=== PATIENT | female | born 1990 | race African-American/Black ===

== ENCOUNTER 2017-04-06 10:35 | Emergency (ER) | payer SELFPAY | END 2017-04-06 12:11 | LOC: ERS 10:35 | DX: Z53.21 Procedure and treatment not carried out due to patient leaving prior to being seen by health care provider (principal) ==

== ENCOUNTER 2018-05-29 17:56 | Emergency (ER) | payer SELFPAY ==
[2018-05-29] MEDS ORDERED: Ibuprofen 800 MG TAB ONE (18:29)
== END 2018-05-29 19:00 | disposition home or self-care (01) ==
LOC: ERS 17:56
DX: Z04.1 Encounter for examination and observation following transport accident (principal); V43.62XA Car passenger injured in collision with other type car in traffic accident, initial encounter
CPT/HCPCS: 99283

== ENCOUNTER 2019-12-24 19:43 | Emergency (ER) | payer SELFPAY | END 2019-12-24 23:10 | disposition left against medical advice (07) | LOC: ERS 19:43 | DX: Z53.21 Procedure and treatment not carried out due to patient leaving prior to being seen by health care provider (principal) ==

== ENCOUNTER 2019-12-25 15:42 | Emergency (ER) | payer SELFPAY ==
[2019-12-25] MEDS ORDERED: Boostrix 0.5 ML (Tdap) VIAL ONE (16:35)
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
== END 2019-12-25 18:27 | disposition home or self-care (01) ==
LOC: ERS 15:42
DX: S01.452A Open bite of left cheek and temporomandibular area, initial encounter (principal); S31.159A Open bite of abdominal wall, unspecified quadrant without penetration into peritoneal cavity, initial encounter; S00.83XA Contusion of other part of head, initial encounter; Z23 Encounter for immunization; F17.210 Nicotine dependence, cigarettes, uncomplicated; F41.9 Anxiety disorder, unspecified; Y04.1XXA Assault by human bite, initial encounter
CPT/HCPCS: 70486; 90471; 90715

== ENCOUNTER 2020-11-15 21:05 | Emergency (ER) | payer SELFPAY ==
[2020-11-15 21:51] LABS: #Basophils 0.1 thou/uL (0.0-0.2); #Lymphocytes 3.8 thou/uL (1.20-3.40); #Monocytes 1.1 thou/uL (0.11-0.59); #Neutrophils 3.8 thou/uL (1.40-6.50); %Basophils 1.5 % (0.0-1.0); %Eosinophils 0.1 % (0.0-10.0); %Lymphocytes 42.7 % (21.0-51.0); %Monocytes 12.6 % (0.0-10.0); Hemoglobin 14.6 g/dL (12.0-16.0); Mean Corpuscular HGB CONC 33.3 g/dL (32.0-36.0); Mean Corpuscular Hemoglobin 33.4 pg (27.0-31.0); Mean Platelet Volume 7.9 fL (7.4-10.4); Platelet Count 252 thou/uL (130-400); RBC Distribution Width 12.6 % (11.5-14.5); Red Blood Cell (RBC) Count 4.38 mill/uL (4.20-5.40); White Blood Cell (WBC) Count 8.9 thou/uL (4.8-10.8)
[2020-11-15 21:57] LABS: BHCG - Serum Negative (NEGATIVE); Pregs Control Background? CLEAR/WHITE (CLR/WHITE); Pregs Control Bar Appear? YES (CONTROL BAR)
[2020-11-15 22:12] LABS: ALT (SGPT) 15 U/L (8-55); AST (SGOT) 20 U/L (5-34); Albumin 4.8 g/dL (3.5-5.0); Alkaline Phosphatase 64 U/L (40-110); Anion Gap 15 mmol/L (10-20); BUN (Urea Nitrogen) 7 mg/dL (7.0-18.7); Bilirubin, Total 0.7 mg/dL (0.2-1.2); Calc. Creatinine Clearance 0 mL/min (70-130); Carbon Dioxide 25 mmol/L (22-29); Chloride 105 mmol/L (98-107); Globulin 3.6 g/dL (2.4-3.5); Glucose 108 mg/dL (70-105); Potassium 3.5 mmol/L (3.5-5.1); Protein, Total 8.4 g/dL (6.0-8.3); Sodium 141 mmol/L (136-145)
[2020-11-15 22:26] LABS: Bacteria/HPF None Seen HPF (None Seen); Bilirubin Negative (Negative); Blood, Urine 3+ (Negative); Clarity Cloudy (Clear); Glucose, Urine (Dipstick) Normal (Negative); Ketone, Urine 40 mg/dL (Negative); Leukocyte 250 Leu/uL (Negative); Nitrite Negative (Negative); Protein, Urine (Dipstick) 70 mg/dL (Neg-Trace); RBC/HPF Greater than 50 HPF (0-3); Specific Gravity, Urine 1.029 (1.002-1.036); Squamous Epithelial 0-3 HPF (0-3); WBC/HPF 21-50 HPF (0-3)
[2020-11-15] MEDS ORDERED: Tranexamic Acid 1,000 MG/10 ML VIAL ONE (23:14)
[2020-11-19 17:15] LABS: Chlamydia by PCR Not Detected (NotDetected); GC by PCR Not Detected (NotDetected)
== END 2020-11-15 23:20 | disposition home or self-care (01) ==
LOC: ERS 21:05
DX: N92.6 Irregular menstruation, unspecified (principal); F17.210 Nicotine dependence, cigarettes, uncomplicated
CPT/HCPCS: 36415; 80053; 81003; 81015; 84702; 84703; 85025; 86900; 86901; 87480; 87491; 87510; 87591; 87660; 99284

== ENCOUNTER 2021-06-14 13:19 | Inpatient (IN) | payer MEDICAID, SELFPAY ==
[~2021-06-14 13:19] MED LIST: Iopamidol-370 76% 500 ML 1 ML ONE
[2021-06-14] MEDS ORDERED: Ondansetron PF 4 MG/2 ML Vial ONE (14:08)
[2021-06-14] MEDS ORDERED: Fentanyl 100 MCG/2 ML VIAL ONE ×2 (14:08→16:04)
[2021-06-14 14:15] LABS: #Basophils 0.1 thou/uL (0.0-0.2); #Monocytes 0.7 thou/uL (0.11-0.59); #Neutrophils 12.5 thou/uL (1.40-6.50); %Basophils 0.4 % (0.0-1.0); %Eosinophils 0.2 % (0.0-10.0); %Lymphocytes 13.2 % (21.0-51.0); %Monocytes 4.8 % (0.0-10.0); %Neutrophils 81.5 % (42.0-75.0); Hemoglobin 14.9 g/dL (12.0-16.0); Mean Corpuscular HGB CONC 34.7 g/dL (32.0-36.0); Mean Corpuscular Hemoglobin 32.5 pg (27.0-31.0); Mean Corpuscular Volume 93.6 fL (78.0-98.0); Mean Platelet Volume 6.8 fL (7.4-10.4); Platelet Count 324 thou/uL (130-400); RBC Distribution Width 11.3 % (11.5-14.5); White Blood Cell (WBC) Count 15.3 thou/uL (4.8-10.8)
[2021-06-14 14:32] LABS: BHCG - Serum Negative (NEGATIVE); Pregs Control Background? CLEAR/WHITE (CLR/WHITE); Pregs Control Bar Appear? YES (CONTROL BAR)
[2021-06-14 14:38] LABS: ALT (SGPT) 26 U/L (8-55); AST (SGOT) 32 U/L (5-34); Albumin 4.5 g/dL (3.5-5.0); Alkaline Phosphatase 67 U/L (40-110); Anion Gap 19 mmol/L (10-20); BUN (Urea Nitrogen) 15 mg/dL (7.0-18.7); Bilirubin, Total 0.6 mg/dL (0.2-1.2); CK (CPK) 162 U/L (29-168); Calc. Creatinine Clearance 0 mL/min (70-130); Calcium 9.4 mg/dL (7.8-10.44); Carbon Dioxide 20 mmol/L (22-29); Chloride 102 mmol/L (98-107); Globulin 3.8 g/dL (2.4-3.5); Glucose 90 mg/dL (70-105); Magnesium 1.5 mg/dL (1.6-2.6); Potassium 3.6 mmol/L (3.5-5.1); Protein, Total 8.3 g/dL (6.0-8.3); Sodium 137 mmol/L (136-145)
[2021-06-14 14:52] LABS: Lipase 1825 U/L (8-78)
[2021-06-14] MEDS ORDERED: Magnesium 2 GM/50 ML BAG (IN WATER) ONE (16:04)
[2021-06-14] MEDS ORDERED: Ondansetron ODT 4 MG TAB PO PRN (16:37)
[2021-06-14] MEDS ORDERED: Acetaminophen 325 MG TAB PO PRN (16:37)
[2021-06-14 17:53] LABS: Alcohol Less than 10 mg/dL (Less than 10); Cardiac Risk 3.6 (Less than 4.5); Cholesterol 184 mg/dl (< 200 Desired); HDL Cholesterol 51 mg/dL (>60 Neg Risk); Triglycerides 810 mg/dL (Less than 150)
[2021-06-14] MEDS: Morphine 2 MG/ML VIAL SLOW IVP PRN (17:58)
[2021-06-14] MEDS: Sodium Chloride 0.9% 1,000 ML IV SCH ×2 (18:01→23:08)
[2021-06-14 18:05] VITALS: BMI 24.5
[2021-06-14 20:05] LABS: Troponin I Less than 0.010 ng/mL (< 0.028)
[2021-06-14] MEDS: HYDROcodone/Acetaminophen 5/325 mg Tablet PO PRN (20:57)
[2021-06-14] MEDS ORDERED: Morphine 2 MG/ML VIAL SLOW IVP SCH (21:00)
[2021-06-14 22:01] LABS: Bacteria/HPF None Seen HPF (None Seen); Bilirubin Negative (Negative); Blood, Urine 2+ (Negative); Clarity Clear (Clear); Glucose, Urine (Dipstick) Normal (Negative); Ketone, Urine 20 mg/dL (Negative); Leukocyte Negative Leu/uL (Negative); Nitrite Negative (Negative); Protein, Urine (Dipstick) 10 mg/dL (Neg-Trace); RBC/HPF 0-3 HPF (0-3); Specific Gravity, Urine 1.036 (1.002-1.036); Squamous Epithelial 0-3 HPF (0-3); Urobilinogen Normal mg/dL (Less than 2); WBC/HPF 0-3 HPF (0-3)
[2021-06-14 22:02] LABS: Urine Culture Reflex No No
[2021-06-14 23:19] LABS: Troponin I Less than 0.010 ng/mL (< 0.028)
[2021-06-15 00:26] LABS: SARS-CoV-2 PCR by NAA Not Detected (NotDetected)
[2021-06-15] MEDS: HYDROcodone/Acetaminophen 5/325 mg Tablet PO PRN ×5 (01:24→18:10)
[2021-06-15] MEDS: Sodium Chloride 0.9% 1,000 ML IV SCH ×6 (01:25→20:33)
[2021-06-15] MEDS: Morphine 2 MG/ML VIAL SLOW IVP PRN ×4 (04:12→20:33)
[2021-06-15 08:36] LABS: #Eosinphils 0.1 thou/uL (0.0-0.7); #Lymphocytes 1.7 thou/uL (1.20-3.40); #Monocytes 0.6 thou/uL (0.11-0.59); #Neutrophils 11.1 thou/uL (1.40-6.50); %Basophils 0.1 % (0.0-1.0); %Eosinophils 1.1 % (0.0-10.0); %Lymphocytes 12.8 % (21.0-51.0); %Monocytes 4.2 % (0.0-10.0); %Neutrophils 81.8 % (42.0-75.0); Hemoglobin 11.8 g/dL (12.0-16.0); Mean Corpuscular HGB CONC 33.9 g/dL (32.0-36.0); Mean Corpuscular Hemoglobin 32.9 pg (27.0-31.0); Mean Corpuscular Volume 97.1 fL (78.0-98.0); Mean Platelet Volume 7.3 fL (7.4-10.4); Platelet Count 216 thou/uL (130-400); RBC Distribution Width 11.4 % (11.5-14.5); Red Blood Cell (RBC) Count 3.58 mill/uL (4.20-5.40); White Blood Cell (WBC) Count 13.6 thou/uL (4.8-10.8)
[2021-06-15 09:15] LABS: Lipase 1430 U/L (8-78)
[2021-06-15 09:18] LABS: ALT (SGPT) 14 U/L (8-55); AST (SGOT) 25 U/L (5-34); Albumin 3.3 g/dL (3.5-5.0); Alkaline Phosphatase 54 U/L (40-110); Anion Gap 10 mmol/L (10-20); BUN (Urea Nitrogen) 8 mg/dL (7.0-18.7); Calc. Creatinine Clearance 100 mL/min (70-130); Carbon Dioxide 20 mmol/L (22-29); Chloride 108 mmol/L (98-107); Globulin 2.6 g/dL (2.4-3.5); Glucose 86 mg/dL (70-105); Magnesium 1.7 mg/dL (1.6-2.6); Potassium 3.5 mmol/L (3.5-5.1); Protein, Total 5.9 g/dL (6.0-8.3); Sodium 134 mmol/L (136-145)
[2021-06-15] MEDS ORDERED: Lorazepam 2 MG/ML VIAL SLOW IVP PRN (16:20)
[2021-06-16] MEDS: HYDROcodone/Acetaminophen 5/325 mg Tablet PO PRN ×5 (00:30→20:01)
[2021-06-16] MEDS: Sodium Chloride 0.9% 1,000 ML IV SCH ×3 (00:36→13:42)
[2021-06-16] MEDS: Morphine 2 MG/ML VIAL SLOW IVP PRN ×3 (05:37→22:56)
[2021-06-16 12:30] LABS: #Eosinphils 0.2 thou/uL (0.0-0.7); #Monocytes 0.6 thou/uL (0.11-0.59); #Neutrophils 8.4 thou/uL (1.40-6.50); %Basophils 0.1 % (0.0-1.0); %Eosinophils 1.6 % (0.0-10.0); %Monocytes 5.4 % (0.0-10.0); Hemoglobin 10.1 g/dL (12.0-16.0); Mean Corpuscular HGB CONC 33.7 g/dL (32.0-36.0); Mean Corpuscular Hemoglobin 32.7 pg (27.0-31.0); Mean Corpuscular Volume 96.8 fL (78.0-98.0); Mean Platelet Volume 7.3 fL (7.4-10.4); Platelet Count 186 thou/uL (130-400); RBC Distribution Width 11.3 % (11.5-14.5); Red Blood Cell (RBC) Count 3.09 mill/uL (4.20-5.40); White Blood Cell (WBC) Count 11.2 thou/uL (4.8-10.8)
[2021-06-16 13:04] LABS: ALT (SGPT) 11 U/L (8-55); AST (SGOT) 25 U/L (5-34); Alkaline Phosphatase 49 U/L (40-110); Anion Gap 12 mmol/L (10-20); BUN (Urea Nitrogen) Less than 4 mg/dL (7.0-18.7); Bilirubin, Total 0.5 mg/dL (0.2-1.2); Calc. Creatinine Clearance 99 mL/min (70-130); Calcium 8.1 mg/dL (7.8-10.44); Carbon Dioxide 19 mmol/L (22-29); Chloride 109 mmol/L (98-107); Globulin 2.5 g/dL (2.4-3.5); Glucose 115 mg/dL (70-105); Magnesium 1.5 mg/dL (1.6-2.6); Potassium 3.9 mmol/L (3.5-5.1); Protein, Total 5.5 g/dL (6.0-8.3); Sodium 136 mmol/L (136-145)
[2021-06-16] MEDS ORDERED: Silver Sulfadiazine 50 GM TUBE TOP SCH ×2 (15:00→21:00)
[2021-06-16] MEDS ORDERED: Electrolyte Replacement Protocol FS PRN (15:00)
[2021-06-16] MEDS ORDERED: Electrolyte Replacement Protocol 1 EACH FS SCH (15:00)
[2021-06-16] MEDS: Lactated Ringer's 1,000 ML IV SCH (15:31)
[2021-06-16] MEDS ORDERED: Magnesium 2 GM/50 ML(in water) 2 GM in Premix Bag 1 BAG IVPB SCH (16:15)
[2021-06-16] MEDS ORDERED: Simethicone Chewable 80 MG TAB PO PRN (18:00)
[2021-06-16] MEDS: Silver Sulfadiazine 50 GM TUBE TOP SCH (20:14)
[2021-06-17] MEDS: Lactated Ringer's 1,000 ML IV SCH ×2 (01:35→02:50)
[2021-06-17] MEDS: HYDROcodone/Acetaminophen 5/325 mg Tablet PO PRN ×3 (02:49→14:30)
[2021-06-17 06:31] LABS: #Eosinphils 0.2 thou/uL (0.0-0.7); #Lymphocytes 2.4 thou/uL (1.20-3.40); #Monocytes 0.4 thou/uL (0.11-0.59); #Neutrophils 5.5 thou/uL (1.40-6.50); %Basophils 0.1 % (0.0-1.0); %Eosinophils 2.3 % (0.0-10.0); %Lymphocytes 28.3 % (21.0-51.0); %Monocytes 4.2 % (0.0-10.0); %Neutrophils 65.1 % (42.0-75.0); Hemoglobin 9.9 g/dL (12.0-16.0); Mean Corpuscular HGB CONC 35.1 g/dL (32.0-36.0); Mean Corpuscular Hemoglobin 34.1 pg (27.0-31.0); Mean Corpuscular Volume 97.2 fL (78.0-98.0); Mean Platelet Volume 7.9 fL (7.4-10.4); Platelet Count 198 thou/uL (130-400); RBC Distribution Width 11.5 % (11.5-14.5); Red Blood Cell (RBC) Count 2.91 mill/uL (4.20-5.40); White Blood Cell (WBC) Count 8.5 thou/uL (4.8-10.8)
[2021-06-17 06:53] LABS: ALT (SGPT) 10 U/L (8-55); AST (SGOT) 27 U/L (5-34); Albumin 3.1 g/dL (3.5-5.0); Alkaline Phosphatase 48 U/L (40-110); Anion Gap 10 mmol/L (10-20); BUN (Urea Nitrogen) Less than 4 mg/dL (7.0-18.7); Bilirubin, Total 0.5 mg/dL (0.2-1.2); Calc. Creatinine Clearance 103 mL/min (70-130); Calcium 8.3 mg/dL (7.8-10.44); Carbon Dioxide 21 mmol/L (22-29); Chloride 107 mmol/L (98-107); Globulin 2.6 g/dL (2.4-3.5); Glucose 83 mg/dL (70-105); Potassium 3.4 mmol/L (3.5-5.1); Protein, Total 5.7 g/dL (6.0-8.3); Sodium 135 mmol/L (136-145)
[2021-06-17] MEDS ORDERED: Potassium Chloride 20 MEQ TAB PO SCH (07:15)
[2021-06-17 08:37] VITALS: TEMP 98.9
[2021-06-17 12:42] VITALS: BP 138/78
[2021-06-17] MEDS: Silver Sulfadiazine 50 GM TUBE TOP SCH (14:39)
== END 2021-06-17 14:41 | disposition home or self-care (01) | DRG 440 ==
LOC: ERS 13:19 → T4-B 15:39
PROVIDERS: ADMIT Internal Medicine; ATTEND Internal Medicine
DX: K85.90 Acute pancreatitis without necrosis or infection, unspecified (principal); Z20.822 Contact with and (suspected) exposure to COVID-19; E83.42 Hypomagnesemia; E87.6 Hypokalemia; F10.10 Alcohol abuse, uncomplicated; T21.02XA Burn of unspecified degree of abdominal wall, initial encounter; X58.XXXA Exposure to other specified factors, initial encounter
CPT/HCPCS: 36415; 71045; 74177; 76705; 80053; 80061; 80307; 81001; 82550; 83690; 83735; 84478; 84484; 84703; 85025; 87040; 96365; 96375; 96376; J2270; J2405; J3010; J3411; J3475; J7050; J7120; Q9967; U0003; U0005

== ENCOUNTER 2021-09-08 20:50 | Inpatient (IN) | payer MEDICAID, SELFPAY ==
[~2021-09-08 20:50] MED LIST changes: +ISOVUE-370 76%-LOCM 1 ML ONE; -Iopamidol-370 76% 500 ML 1 ML ONE
[2021-09-08] MEDS ORDERED: Morphine 4 MG/ML VIAL ONE (21:46)
[2021-09-08] MEDS ORDERED: Ondansetron PF 4 MG/2 ML Vial ONE (21:46)
[2021-09-08 21:50] LABS: #Basophils 0.1 thou/uL (0.0-0.2); #Lymphocytes 2.3 thou/uL (1.20-3.40); #Monocytes 0.7 thou/uL (0.11-0.59); #Neutrophils 9.5 thou/uL (1.40-6.50); %Basophils 0.5 % (0.0-1.0); %Eosinophils 0.3 % (0.0-10.0); %Monocytes 5.7 % (0.0-10.0); %Neutrophils 75.5 % (42.0-75.0); Mean Corpuscular HGB CONC 34.4 g/dL (32.0-36.0); Mean Corpuscular Hemoglobin 33.5 pg (27.0-31.0); Mean Corpuscular Volume 97.5 fL (78.0-98.0); Mean Platelet Volume 7.3 fL (7.4-10.4); Platelet Count 274 thou/uL (130-400); Red Blood Cell (RBC) Count 4.19 mill/uL (4.20-5.40); White Blood Cell (WBC) Count 12.5 thou/uL (4.8-10.8)
[2021-09-08 21:55] LABS: BHCG - Serum Negative (NEGATIVE); Pregs Control Background? CLEAR/WHITE (CLR/WHITE); Pregs Control Bar Appear? YES (CONTROL BAR)
[2021-09-08 22:11] LABS: ALT (SGPT) 19 U/L (8-55); AST (SGOT) 25 U/L (5-34); Albumin 4.1 g/dL (3.5-5.0); Alkaline Phosphatase 81 U/L (40-110); Anion Gap 15 mmol/L (10-20); BUN (Urea Nitrogen) 10 mg/dL (7.0-18.7); Bilirubin, Total 0.5 mg/dL (0.2-1.2); Calc. Creatinine Clearance 0 mL/min (70-130); Calcium 9.5 mg/dL (7.8-10.44); Carbon Dioxide 24 mmol/L (22-29); Chloride 99 mmol/L (98-107); Estimated GFR 92; Globulin 4.1 g/dL (2.4-3.5); Glucose 105 mg/dL (70-105); Lipase 574 U/L (8-78); Potassium 3.7 mmol/L (3.5-5.1); Protein, Total 8.2 g/dL (6.0-8.3); Sodium 134 mmol/L (136-145)
[2021-09-08] MEDS ORDERED: Thiamine HCl 200 MG/2 ML VIAL SLOW IVP SCH (22:30)
[2021-09-08 22:39] LABS: Magnesium 1.4 mg/dL (1.6-2.6)
[2021-09-08] MEDS ORDERED: Fentanyl 100 MCG/2 ML VIAL ONE (22:44)
[2021-09-08] MEDS ORDERED: Multivitamins, Adult 10 ML, Thiamine HCl 100 MG, Folic Acid 1 MG in Dextrose 5 %-0.45 %... IV SCH (23:15)
[2021-09-08] MEDS ORDERED: Sodium Chloride 0.9% 1,000 ML IV SCH (23:45)
[2021-09-08] MEDS ORDERED: Fentanyl 100 MCG/2 ML VIAL SLOW IVP PRN (23:46)
[2021-09-09] MEDS ORDERED: Ondansetron PF 4 MG/2 ML Vial IVP PRN (00:49)
[2021-09-09] MEDS ORDERED: Acetaminophen 650 MG Suppository PR PRN (00:49)
[2021-09-09] MEDS ORDERED: Ondansetron ODT 4 MG TAB PO PRN (00:49)
[2021-09-09] MEDS ORDERED: Promethazine HCl 25 MG/ML VIAL IM PRN (00:49)
[2021-09-09] MEDS ORDERED: Acetaminophen 325 MG TAB PO PRN (00:49)
[2021-09-09] MEDS ORDERED: Lorazepam 2 MG/ML VIAL IM PRN (00:56)
[2021-09-09] MEDS ORDERED: Lorazepam 1 MG TAB PO PRN (00:56)
[2021-09-09] MEDS ORDERED: Magnesium Sulfate 4 GM in Sodium Chloride 0.9% 250 ML 250 ML IVPB SCH (01:00)
[2021-09-09] MEDS ORDERED: Electrolyte Replacement Protocol 1 EACH FS SCH (01:00)
[2021-09-09] MEDS: Sodium Chloride 0.9% 1,000 ML IV SCH ×4 (01:46→15:54)
[2021-09-09] MEDS: Lorazepam 1 MG TAB PO SCH ×4 (01:48→18:57)
[2021-09-09 02:20] VITALS: BMI 25.7
[2021-09-09 05:06] LABS: #Monocytes 0.9 thou/uL (0.11-0.59); #Neutrophils 8.1 thou/uL (1.40-6.50); %Basophils 0.2 % (0.0-1.0); %Eosinophils 0.4 % (0.0-10.0); %Lymphocytes 18.2 % (21.0-51.0); %Monocytes 8.4 % (0.0-10.0); %Neutrophils 72.8 % (42.0-75.0); Hemoglobin 12.3 g/dL (12.0-16.0); Mean Corpuscular HGB CONC 33.6 g/dL (32.0-36.0); Mean Corpuscular Hemoglobin 33.6 pg (27.0-31.0); Mean Platelet Volume 7.5 fL (7.4-10.4); Platelet Count 236 thou/uL (130-400); RBC Distribution Width 12.1 % (11.5-14.5); Red Blood Cell (RBC) Count 3.65 mill/uL (4.20-5.40); White Blood Cell (WBC) Count 11.1 thou/uL (4.8-10.8)
[2021-09-09 05:26] LABS: Anion Gap 12 mmol/L (10-20); BUN (Urea Nitrogen) 6 mg/dL (7.0-18.7); Calc. Creatinine Clearance 105 mL/min (70-130); Calcium 8.5 mg/dL (7.8-10.44); Carbon Dioxide 20 mmol/L (22-29); Chloride 104 mmol/L (98-107); Estimated GFR 108; Glucose 103 mg/dL (70-105); Potassium 3.5 mmol/L (3.5-5.1); Sodium 132 mmol/L (136-145)
[2021-09-09] MEDS ORDERED: Potassium Chloride 20 MEQ TAB PO SCH (08:00)
[2021-09-09] MEDS: Multivit, Therapeutic 1 TAB PO SCH (08:48)
[2021-09-09] MEDS: Folic Acid 1 MG TAB PO SCH (08:48)
[2021-09-09] MEDS: Enoxaparin Sodium 40 MG/0.4 ML SYRINGE SC SCH (08:48)
[2021-09-09] MEDS ORDERED: Morphine 4 MG/ML VIAL SLOW IVP SCH (12:30)
[2021-09-09 13:21] LABS: Potassium 3.7 mmol/L (3.5-5.1)
[2021-09-09] MEDS: Multivitamins, Adult 10 ML, Folic Acid 1 MG, Thiamine HCl 100 MG in Dextrose 5 %-0.45 %... IV SCH (13:47)
[2021-09-09] MEDS: Senokot S 8.6-50 MG TAB PO SCH ×2 (20:43→21:32)
[2021-09-09] MEDS: Morphine 4 MG/ML VIAL SLOW IVP PRN (21:33)
[2021-09-10] MEDS ORDERED: Lorazepam 1 MG TAB PO PRN (00:56)
[2021-09-10] MEDS: Morphine 4 MG/ML VIAL SLOW IVP PRN ×2 (01:49→08:32)
[2021-09-10] MEDS: Lorazepam 1 MG TAB PO SCH ×2 (01:49→06:40)
[2021-09-10 05:18] LABS: #Eosinphils 0.1 thou/uL (0.0-0.7); #Lymphocytes 1.8 thou/uL (1.20-3.40); #Monocytes 0.5 thou/uL (0.11-0.59); #Neutrophils 3.8 thou/uL (1.40-6.50); %Basophils 0.2 % (0.0-1.0); %Eosinophils 2.2 % (0.0-10.0); %Lymphocytes 28.7 % (21.0-51.0); %Monocytes 7.3 % (0.0-10.0); %Neutrophils 61.6 % (42.0-75.0); Hemoglobin 10.5 g/dL (12.0-16.0); Mean Corpuscular HGB CONC 34.1 g/dL (32.0-36.0); Mean Corpuscular Hemoglobin 34.2 pg (27.0-31.0); Mean Platelet Volume 7.6 fL (7.4-10.4); Platelet Count 190 thou/uL (130-400); RBC Distribution Width 11.9 % (11.5-14.5); Red Blood Cell (RBC) Count 3.08 mill/uL (4.20-5.40); White Blood Cell (WBC) Count 6.1 thou/uL (4.8-10.8)
[2021-09-10 05:37] LABS: ALT (SGPT) 9 U/L (8-55); AST (SGOT) 15 U/L (5-34); Albumin 3.3 g/dL (3.5-5.0); Alkaline Phosphatase 58 U/L (40-110); Anion Gap 13 mmol/L (10-20); BUN (Urea Nitrogen) 5 mg/dL (7.0-18.7); Bilirubin, Total 0.4 mg/dL (0.2-1.2); Calc. Creatinine Clearance 104 mL/min (70-130); Calcium 8.4 mg/dL (7.8-10.44); Carbon Dioxide 20 mmol/L (22-29); Chloride 104 mmol/L (98-107); Estimated GFR 107; Globulin 2.8 g/dL (2.4-3.5); Glucose 115 mg/dL (70-105); Lipase 385 U/L (8-78); Magnesium 1.7 mg/dL (1.6-2.6); Phosphorus 3.1 mg/dL (2.3-4.7); Potassium 3.8 mmol/L (3.5-5.1); Protein, Total 6.1 g/dL (6.0-8.3); Sodium 133 mmol/L (136-145)
[2021-09-10] MEDS ORDERED: Magnesium 2 GM/50 ML(in water) 2 GM in Premix Bag 1 BAG IVPB SCH (08:00)
[2021-09-10] MEDS: Multivit, Therapeutic 1 TAB PO SCH (08:25)
[2021-09-10] MEDS: Senokot S 8.6-50 MG TAB PO SCH (08:25)
[2021-09-10] MEDS: Folic Acid 1 MG TAB PO SCH (08:25)
[2021-09-10] MEDS: Enoxaparin Sodium 40 MG/0.4 ML SYRINGE SC SCH (08:26)
[2021-09-10] MEDS ORDERED: Pantoprazole 40 MG VIAL IVP SCH (09:00)
[2021-09-10 09:04] VITALS: BP 128/85; TEMP 98.3
[2021-09-10] MEDS: Multivitamins, Adult 10 ML, Folic Acid 1 MG, Thiamine HCl 100 MG in Dextrose 5 %-0.45 %... IV SCH (10:28)
[2021-09-11] MEDS ORDERED: Lorazepam 1 MG TAB PO PRN (00:56)
[2021-09-11] MEDS ORDERED: Lorazepam 0.5 MG TAB PO SCH (01:00)
[2021-09-12] MEDS ORDERED: Lorazepam 0.5 MG TAB PO PRN (00:56)
[2021-09-12] MEDS ORDERED: Thiamine 100 MG TAB PO SCH (09:00)
== END 2021-09-10 11:37 | disposition left against medical advice (07) | DRG 439 ==
LOC: ERS 20:50 → 2SW 23:41 → OBSVTOIN 09-09 22:49
PROVIDERS: ADMIT Internal Medicine; ATTEND Internal Medicine
DX: K85.20 Alcohol induced acute pancreatitis without necrosis or infection (principal); E87.1 Hypo-osmolality and hyponatremia; Z20.822 Contact with and (suspected) exposure to COVID-19; F17.210 Nicotine dependence, cigarettes, uncomplicated; F10.20 Alcohol dependence, uncomplicated; E83.42 Hypomagnesemia; Z79.899 Other long term (current) drug therapy; Z88.5 Allergy status to narcotic agent; Z53.29 Procedure and treatment not carried out because of patient's decision for other reasons
CPT/HCPCS: 36415; 74177; 80048; 80053; 83690; 83735; 84100; 84703; 85025; 93005; 96372; 96375; 96376; C9113; G0378; J1650; J2270; J2405; J2550; J3010; J3411; J3475; J7042; J7050; Q9966; U0003; U0005

== ENCOUNTER 2021-09-25 13:58 | Inpatient (IN) | payer SELFPAY ==
[2021-09-25] MEDS ORDERED: Iopamidol-370 76% 500 ML 1 ML ONE (14:07)
[2021-09-25 14:26] LABS: Hemoglobin 13.9 g/dL (12.0-16.0); Mean Corpuscular HGB CONC 36.4 g/dL (32.0-36.0); Mean Corpuscular Volume 93.5 fL (78.0-98.0); Mean Platelet Volume 7.3 fL (7.4-10.4); Platelet Count 311 thou/uL (130-400); RBC Distribution Width 11.6 % (11.5-14.5); Red Blood Cell (RBC) Count 4.08 mill/uL (4.20-5.40); White Blood Cell (WBC) Count 5.3 thou/uL (4.8-10.8)
[2021-09-25 14:44] LABS: ALT (SGPT) 43 U/L (8-55); AST (SGOT) 54 U/L (5-34); Albumin 4.2 g/dL (3.5-5.0); Alkaline Phosphatase 74 U/L (40-110); Anion Gap 19 mmol/L (10-20); BUN (Urea Nitrogen) 11 mg/dL (7.0-18.7); Bilirubin, Total 0.3 mg/dL (0.2-1.2); Calc. Creatinine Clearance 0 mL/min (70-130); Calcium 9.3 mg/dL (7.8-10.44); Carbon Dioxide 19 mmol/L (22-29); Chloride 103 mmol/L (98-107); Estimated GFR 78; Globulin 4.1 g/dL (2.4-3.5); Glucose 113 mg/dL (70-105); Lipase 176 U/L (8-78); Potassium 3.7 mmol/L (3.5-5.1); Protein, Total 8.3 g/dL (6.0-8.3); Sodium 137 mmol/L (136-145)
[2021-09-25 14:49] LABS: Eosinophils 2 % (0-10); Lymphocytes 74 % (21-51); MDiff Complete? YES; Monocytes 7 % (0-10); Neutrophil 17 % (42-75); Platelet Morphology Comment Appears Adequate; RBC Morphology Normal
[2021-09-25 14:55] LABS: BHCG - Serum Negative (NEGATIVE); Pregs Control Background? CLEAR/WHITE (CLR/WHITE); Pregs Control Bar Appear? YES (CONTROL BAR)
[2021-09-25] MEDS ORDERED: Morphine 4 MG/ML VIAL ONE ×2 (14:56→16:09)
[2021-09-25] MEDS ORDERED: Ondansetron PF 4 MG/2 ML Vial ONE (14:56)
[2021-09-25 17:15] LABS: Lactic Acid 1.5 mmol/L (0.5-2.2)
[2021-09-25] MEDS ORDERED: Fentanyl 100 MCG/2 ML VIAL ONE (17:18)
[2021-09-25] MEDS ORDERED: Acetaminophen 325 MG TAB PO PRN (18:08)
[2021-09-25] MEDS ORDERED: Diazepam 5 MG TAB ONE (18:08)
[2021-09-25] MEDS ORDERED: Ondansetron PF 4 MG/2 ML Vial IVP PRN (18:08)
[2021-09-25 19:14] LABS: Cardiac Risk 4.3 (Less than 4.5); Cholesterol 207 mg/dl (< 200 Desired); HDL Cholesterol 48 mg/dL (>60 Neg Risk)
[2021-09-25 19:38] VITALS: BMI 24.0
[2021-09-25] MEDS: Lactated Ringer's 1,000 ML IV SCH (19:52)
[2021-09-25] MEDS: Famotidine/PF 20 mg/2ml Vial SLOW IVP SCH (19:54)
[2021-09-25] MEDS: Morphine 4 MG/ML VIAL SLOW IVP PRN (20:03)
[2021-09-25 20:04] LABS: Triglycerides 1070 mg/dL (Less than 150)
[2021-09-26] MEDS: Morphine 4 MG/ML VIAL SLOW IVP PRN ×4 (00:11→20:17)
[2021-09-26] MEDS: Lactated Ringer's 1,000 ML IV SCH ×4 (02:19→12:09)
[2021-09-26 06:27] LABS: #Eosinphils 0.1 thou/uL (0.0-0.7); #Lymphocytes 1.6 thou/uL (1.20-3.40); #Monocytes 0.9 thou/uL (0.11-0.59); #Neutrophils 6.6 thou/uL (1.40-6.50); %Basophils 0.3 % (0.0-1.0); %Eosinophils 0.7 % (0.0-10.0); %Lymphocytes 17.9 % (21.0-51.0); %Monocytes 9.6 % (0.0-10.0); %Neutrophils 71.6 % (42.0-75.0); Hemoglobin 11.2 g/dL (12.0-16.0); Mean Corpuscular HGB CONC 34.3 g/dL (32.0-36.0); Mean Corpuscular Hemoglobin 32.9 pg (27.0-31.0); Mean Corpuscular Volume 95.9 fL (78.0-98.0); Mean Platelet Volume 7.3 fL (7.4-10.4); Platelet Count 248 thou/uL (130-400); RBC Distribution Width 11.6 % (11.5-14.5); Red Blood Cell (RBC) Count 3.39 mill/uL (4.20-5.40); White Blood Cell (WBC) Count 9.2 thou/uL (4.8-10.8)
[2021-09-26 06:40] LABS: ALT (SGPT) 28 U/L (8-55); AST (SGOT) 29 U/L (5-34); Albumin 3.4 g/dL (3.5-5.0); Alkaline Phosphatase 65 U/L (40-110); Anion Gap 11 mmol/L (10-20); BUN (Urea Nitrogen) 7 mg/dL (7.0-18.7); Bilirubin, Total 0.7 mg/dL (0.2-1.2); Calc. Creatinine Clearance 95 mL/min (70-130); Calcium 8.6 mg/dL (7.8-10.44); Carbon Dioxide 24 mmol/L (22-29); Chloride 104 mmol/L (98-107); Estimated GFR 100; Globulin 2.8 g/dL (2.4-3.5); Glucose 112 mg/dL (70-105); Magnesium 1.4 mg/dL (1.6-2.6); Potassium 3.8 mmol/L (3.5-5.1); Protein, Total 6.2 g/dL (6.0-8.3); Sodium 135 mmol/L (136-145)
[2021-09-26] MEDS: Famotidine/PF 20 mg/2ml Vial SLOW IVP SCH ×2 (08:17→20:19)
[2021-09-26 09:09] LABS: Cardiac Risk 2.6 (Less than 4.5)
[2021-09-26] MEDS ORDERED: Magnesium Sulfate 3 GM in Sodium Chloride 0.9% 100 ML IVPB SCH (10:00)
[2021-09-26] MEDS ORDERED: Ondansetron PF 4 MG/2 ML Vial IVP PRN (11:10)
[2021-09-26] MEDS: HYDROcodone/Acetaminophen 5/325 mg Tablet PO PRN ×3 (12:07→23:59)
[2021-09-26] MEDS: diphenhydrAMINE 25 MG CAP PO PRN ×2 (12:07→21:30)
[2021-09-27] MEDS: Morphine 4 MG/ML VIAL SLOW IVP PRN ×4 (03:41→23:12)
[2021-09-27 06:16] LABS: #Eosinphils 0.1 thou/uL (0.0-0.7); #Lymphocytes 2.4 thou/uL (1.20-3.40); #Monocytes 0.5 thou/uL (0.11-0.59); #Neutrophils 3.2 thou/uL (1.40-6.50); %Basophils 0.5 % (0.0-1.0); %Eosinophils 1.8 % (0.0-10.0); %Lymphocytes 37.8 % (21.0-51.0); %Monocytes 8.1 % (0.0-10.0); %Neutrophils 51.8 % (42.0-75.0); Hemoglobin 9.7 g/dL (12.0-16.0); Mean Corpuscular Volume 97.1 fL (78.0-98.0); Mean Platelet Volume 7.3 fL (7.4-10.4); Platelet Count 205 thou/uL (130-400); RBC Distribution Width 11.6 % (11.5-14.5); Red Blood Cell (RBC) Count 2.85 mill/uL (4.20-5.40); White Blood Cell (WBC) Count 6.3 thou/uL (4.8-10.8)
[2021-09-27] MEDS: HYDROcodone/Acetaminophen 5/325 mg Tablet PO PRN ×4 (06:21→20:13)
[2021-09-27] MEDS: diphenhydrAMINE 25 MG CAP PO PRN ×2 (06:21→23:11)
[2021-09-27 06:31] LABS: CRP (Inflammatory) 3.19 mg/dL (= or < 0.5)
[2021-09-27 06:37] LABS: ALT (SGPT) 17 U/L (8-55); AST (SGOT) 21 U/L (5-34); Albumin 2.9 g/dL (3.5-5.0); Alkaline Phosphatase 55 U/L (40-110); Anion Gap 11 mmol/L (10-20); BUN (Urea Nitrogen) 4 mg/dL (7.0-18.7); Bilirubin, Total 0.4 mg/dL (0.2-1.2); Calc. Creatinine Clearance 93 mL/min (70-130); Carbon Dioxide 23 mmol/L (22-29); Chloride 106 mmol/L (98-107); Estimated GFR 97; Globulin 2.4 g/dL (2.4-3.5); Glucose 89 mg/dL (70-105); Lipase 449 U/L (8-78); Potassium 3.4 mmol/L (3.5-5.1); Protein, Total 5.3 g/dL (6.0-8.3); Sodium 137 mmol/L (136-145)
[2021-09-27] MEDS: Polyethylene Glycol 3350 17 GM Packet PO SCH (10:12)
[2021-09-27] MEDS: Famotidine/PF 20 mg/2ml Vial SLOW IVP SCH ×2 (10:13→20:12)
[2021-09-27] MEDS: Potassium Chloride 20 MEQ TAB PO SCH ×2 (10:15→17:25)
[2021-09-27] MEDS: Lactated Ringer's 1,000 ML IV SCH ×2 (10:15→16:44)
[2021-09-28] MEDS: HYDROcodone/Acetaminophen 5/325 mg Tablet PO PRN ×4 (00:14→22:52)
[2021-09-28] MEDS: Morphine 4 MG/ML VIAL SLOW IVP PRN ×3 (04:21→20:30)
[2021-09-28] MEDS: Lactated Ringer's 1,000 ML IV SCH ×5 (04:36→23:18)
[2021-09-28 07:39] LABS: Anion Gap 13 mmol/L (10-20); BUN (Urea Nitrogen) 6 mg/dL (7.0-18.7); Calc. Creatinine Clearance 95 mL/min (70-130); Calcium 8.6 mg/dL (7.8-10.44); Carbon Dioxide 23 mmol/L (22-29); Chloride 104 mmol/L (98-107); Estimated GFR 100; Glucose 89 mg/dL (70-105); Magnesium 1.6 mg/dL (1.6-2.6); Sodium 136 mmol/L (136-145)
[2021-09-28 07:48] LABS: #Basophils 0.1 thou/uL (0.0-0.2); #Eosinphils 0.1 thou/uL (0.0-0.7); #Lymphocytes 2.4 thou/uL (1.20-3.40); #Monocytes 0.4 thou/uL (0.11-0.59); %Basophils 0.8 % (0.0-1.0); %Eosinophils 1.7 % (0.0-10.0); %Lymphocytes 34.6 % (21.0-51.0); %Monocytes 5.6 % (0.0-10.0); %Neutrophils 57.4 % (42.0-75.0); Hemoglobin 9.7 g/dL (12.0-16.0); Mean Corpuscular HGB CONC 33.6 g/dL (32.0-36.0); Mean Corpuscular Hemoglobin 33.1 pg (27.0-31.0); Mean Corpuscular Volume 98.6 fL (78.0-98.0); Mean Platelet Volume 7.9 fL (7.4-10.4); Platelet Count 223 thou/uL (130-400); RBC Distribution Width 11.8 % (11.5-14.5); Red Blood Cell (RBC) Count 2.94 mill/uL (4.20-5.40)
[2021-09-28] MEDS: Polyethylene Glycol 3350 17 GM Packet PO SCH (08:44)
[2021-09-28] MEDS: Famotidine/PF 20 mg/2ml Vial SLOW IVP SCH ×2 (08:45→20:22)
[2021-09-28] MEDS: diphenhydrAMINE 25 MG CAP PO PRN ×3 (08:57→22:53)
[2021-09-29] MEDS: Morphine 4 MG/ML VIAL SLOW IVP PRN (01:47)
[2021-09-29] MEDS: HYDROcodone/Acetaminophen 5/325 mg Tablet PO PRN ×2 (03:28→08:21)
[2021-09-29] MEDS: Lactated Ringer's 1,000 ML IV SCH ×2 (04:51→10:39)
[2021-09-29 08:20] LABS: #Eosinphils 0.1 thou/uL (0.0-0.7); #Lymphocytes 2.8 thou/uL (1.20-3.40); #Monocytes 0.6 thou/uL (0.11-0.59); #Neutrophils 5.4 thou/uL (1.40-6.50); %Basophils 0.3 % (0.0-1.0); %Eosinophils 1.2 % (0.0-10.0); %Monocytes 6.6 % (0.0-10.0); %Neutrophils 60.8 % (42.0-75.0); Hemoglobin 9.9 g/dL (12.0-16.0); Mean Corpuscular HGB CONC 34.2 g/dL (32.0-36.0); Mean Corpuscular Hemoglobin 33.7 pg (27.0-31.0); Mean Corpuscular Volume 98.6 fL (78.0-98.0); Mean Platelet Volume 8.3 fL (7.4-10.4); Platelet Count 208 thou/uL (130-400); RBC Distribution Width 11.7 % (11.5-14.5); Red Blood Cell (RBC) Count 2.94 mill/uL (4.20-5.40); White Blood Cell (WBC) Count 8.9 thou/uL (4.8-10.8)
[2021-09-29] MEDS: Famotidine/PF 20 mg/2ml Vial SLOW IVP SCH ×2 (08:23→21:31)
[2021-09-29] MEDS: Polyethylene Glycol 3350 17 GM Packet PO SCH (08:24)
[2021-09-29 08:49] LABS: ALT (SGPT) 17 U/L (8-55); AST (SGOT) 29 U/L (5-34); Albumin 3.1 g/dL (3.5-5.0); Alkaline Phosphatase 68 U/L (40-110); Anion Gap 14 mmol/L (10-20); BUN (Urea Nitrogen) 5 mg/dL (7.0-18.7); Bilirubin, Total Less than 0.2 mg/dL (0.2-1.2); CRP (Inflammatory) 1.29 mg/dL (= or < 0.5); Calc. Creatinine Clearance 90 mL/min (70-130); Calcium 8.5 mg/dL (7.8-10.44); Carbon Dioxide 22 mmol/L (22-29); Chloride 104 mmol/L (98-107); Estimated GFR 93; Glucose 92 mg/dL (70-105); Lipase 126 U/L (8-78); Potassium 4.3 mmol/L (3.5-5.1); Protein, Total 6.1 g/dL (6.0-8.3); Sodium 136 mmol/L (136-145)
[2021-09-29] MEDS ORDERED: HYDROcodone/Acetaminophen 5/325 mg Tablet PO PRN (09:54)
[2021-09-29] MEDS ORDERED: Ibuprofen 800 MG TAB PO SCH (10:30)
[2021-09-29] MEDS ORDERED: Lorazepam 1 MG TAB PO SCH (13:00)
[2021-09-29] MEDS ORDERED: Ketorolac Tromethamine 30 MG/ML VIAL IVP PRN (14:39)
[2021-09-30] MEDS: Famotidine/PF 20 mg/2ml Vial SLOW IVP SCH (09:41)
[2021-09-30] MEDS: Polyethylene Glycol 3350 17 GM Packet PO SCH (09:42)
[2021-09-30 17:10] VITALS: BP 127/85; TEMP 98.3
== END 2021-09-30 18:24 | disposition home or self-care (01) | DRG 440 ==
LOC: ERS 13:58 → T4-B 17:32 → OBSVTOIN 09-26 15:46
PROVIDERS: ADMIT Internal Medicine; ATTEND Internal Medicine
DX: K85.20 Alcohol induced acute pancreatitis without necrosis or infection (principal); K86.0 Alcohol-induced chronic pancreatitis; F17.210 Nicotine dependence, cigarettes, uncomplicated; F41.9 Anxiety disorder, unspecified; F10.10 Alcohol abuse, uncomplicated; Z20.822 Contact with and (suspected) exposure to COVID-19; Z79.899 Other long term (current) drug therapy
CPT/HCPCS: 36415; 74177; 80048; 80053; 80061; 83605; 83690; 83735; 84478; 84703; 85025; 86140; 87040; 93005; 94760; 96361; 96374; 96375; 96376; G0378; J1885; J2270; J2405; J3010; J3475; J3490; J7120; Q9967; S0028; U0003; U0005

== ENCOUNTER 2022-01-07 17:26 | Inpatient (IN) | payer SELFPAY ==
[~2022-01-07 17:26] MED LIST changes: -ISOVUE-370 76%-LOCM 1 ML ONE; +Iopamidol-370 76% 500 ML 1 ML ONE
[2022-01-07] MEDS ORDERED: Morphine 4 MG/ML VIAL ONE (17:57)
[2022-01-07] MEDS ORDERED: Lorazepam 2 MG/ML VIAL ONE (17:57)
[2022-01-07] MEDS ORDERED: Ondansetron PF 4 MG/2 ML Vial ONE (17:57)
[2022-01-07 18:03] LABS: #Lymphocytes 2.6 thou/uL (1.20-3.40); #Monocytes 0.6 thou/uL (0.11-0.59); #Neutrophils 5.3 thou/uL (1.40-6.50); %Basophils 0.4 % (0.0-1.0); %Eosinophils 0.2 % (0.0-10.0); %Lymphocytes 30.3 % (21.0-51.0); %Monocytes 7.4 % (0.0-10.0); %Neutrophils 61.7 % (42.0-75.0); Hemoglobin 13.7 g/dL (12.0-16.0); Mean Corpuscular HGB CONC 34.9 g/dL (32.0-36.0); Mean Corpuscular Hemoglobin 33.2 pg (27.0-31.0); Mean Corpuscular Volume 95.1 fl (78.0-98.0); Mean Platelet Volume 8.2 fL (7.4-10.4); Platelet Count 254 10x3/uL (130-400); RBC Distribution Width 12.4 % (11.5-14.5); Red Blood Cell (RBC) Count 4.13 mill/uL (4.20-5.40); White Blood Cell (WBC) Count 8.6 10x3/uL (4.8-10.8)
[2022-01-07 18:15] LABS: BHCG - Serum Negative (NEGATIVE); Pregs Control Background? CLEAR/WHITE (CLR/WHITE); Pregs Control Bar Appear? YES (CONTROL BAR)
[2022-01-07] MEDS ORDERED: Multivitamins, Adult 10 ML, Thiamine HCl 100 MG, Folic Acid 1 MG in Dextrose 5 %-0.45 %... IV SCH (18:15)
[2022-01-07 18:24] LABS: ALT (SGPT) 27 U/L (8-55); AST (SGOT) 34 U/L (5-34); Albumin 4.5 g/dL (3.5-5.0); Alkaline Phosphatase 77 U/L (40-110); Anion Gap 21 mmol/L (10-20); BUN (Urea Nitrogen) 8 mg/dL (7.0-18.7); Bilirubin, Total 0.6 mg/dL (0.2-1.2); Calc. Creatinine Clearance 0 mL/min (70-130); Calcium 9.3 mg/dL (7.8-10.44); Carbon Dioxide 21 mmol/L (22-29); Chloride 97 mmol/L (98-107); Estimated GFR 68; Globulin 4.3 g/dL (2.4-3.5); Glucose 117 mg/dL (70-105); Lipase 170 U/L (8-78); Potassium 3.4 mmol/L (3.5-5.1); Protein, Total 8.8 g/dL (6.0-8.3); Sodium 136 mmol/L (136-145)
[2022-01-07 19:27] LABS: Bacteria/HPF None Seen HPF (None Seen); Bilirubin Negative (Negative); Blood, Urine 3+ (Negative); Clarity Clear (Clear); Glucose, Urine (Dipstick) Normal (Negative); Ketone, Urine 10 mg/dL (Negative); Leukocyte 75 Leu/uL (Negative); Nitrite Negative (Negative); Protein, Urine (Dipstick) 50 mg/dL (Neg-Trace); RBC/HPF 21-50 HPF (0-3); Specific Gravity, Urine 1.033 (1.002-1.036); Urobilinogen Normal mg/dL (Less than 2)
[2022-01-07] MEDS ORDERED: LORazepam 2 MG/ML SYR.(CARPUJECT) ONE (19:31)
[2022-01-07] MEDS ORDERED: Magnesium 2 GM/50 ML BAG (IN WATER) ONE (19:32)
[2022-01-07] MEDS ORDERED: Acetaminophen 325 MG TAB PO PRN (20:51)
[2022-01-07] MEDS ORDERED: Acetaminophen 650 MG Suppository PR PRN (20:51)
[2022-01-07] MEDS ORDERED: Ondansetron PF 4 MG/2 ML Vial IVP PRN (20:51)
[2022-01-07] MEDS ORDERED: Ondansetron ODT 4 MG TAB PO PRN (20:51)
[2022-01-07] MEDS ORDERED: Lorazepam 2 MG/ML VIAL IM PRN (21:12)
[2022-01-07] MEDS ORDERED: Lorazepam 1 MG TAB PO PRN (21:12)
[2022-01-07] MEDS ORDERED: Electrolyte Replacement Protocol 1 EACH FS SCH (21:15)
[2022-01-07] MEDS: Potassium Chloride 20 MEQ in Premix Bag 1 BAG IVPB SCH (21:59)
[2022-01-07] MEDS: Sodium Chloride 0.9% 1,000 ML IV SCH (22:00)
[2022-01-07] MEDS: Lorazepam 1 MG TAB PO SCH (22:00)
[2022-01-07] MEDS: Morphine 4 MG/ML VIAL SLOW IVP PRN (22:10)
[2022-01-07 23:04] VITALS: BMI 27.6
[2022-01-07 23:11] LABS: Magnesium 1.3 mg/dL (1.6-2.6); Phosphorus 2.9 mg/dL (2.3-4.7)
[2022-01-07 23:43] LABS: Amphetamine Not Detected (NotDetected); Barbiturates Screen Not Detected (NotDetected); Benzodiazepine Screen Detected (NotDetected); Cocaine Metabolite Screen Not Detected (NotDetected); Methadone Not Detected (NotDetected); Methamphetamine Not Detected (NotDetected); Opiate Screen Detected (NotDetected); Oxycodone Screen Not Detected (NotDetected); Phencyclidine (PCP) Not Detected (NotDetected); THC/Cannabinoid Screen Detected (NotDetected); Tricyclic Screen Not Detected (NotDetected)
[2022-01-08] MEDS: Potassium Chloride 20 MEQ in Premix Bag 1 BAG IVPB SCH (00:28)
[2022-01-08] MEDS: Morphine 4 MG/ML VIAL SLOW IVP PRN ×3 (01:48→09:57)
[2022-01-08] MEDS: Lorazepam 1 MG TAB PO SCH ×4 (02:15→20:22)
[2022-01-08] MEDS: Sodium Chloride 0.9% 1,000 ML IV SCH ×4 (02:55→20:22)
[2022-01-08] MEDS ORDERED: Magnesium 2 GM/50 ML(in water) 2 GM in Premix Bag 1 BAG IVPB SCH (08:00)
[2022-01-08 08:05] LABS: #Eosinphils 0.1 thou/uL (0.0-0.7); #Lymphocytes 2.2 thou/uL (1.20-3.40); #Monocytes 0.6 thou/uL (0.11-0.59); #Neutrophils 3.3 thou/uL (1.40-6.50); %Basophils 0.1 % (0.0-1.0); %Eosinophils 1.8 % (0.0-10.0); %Lymphocytes 35.2 % (21.0-51.0); %Monocytes 9.6 % (0.0-10.0); %Neutrophils 53.3 % (42.0-75.0); Hemoglobin 11.2 g/dL (12.0-16.0); Mean Corpuscular HGB CONC 34.1 g/dL (32.0-36.0); Mean Corpuscular Hemoglobin 33.3 pg (27.0-31.0); Mean Corpuscular Volume 97.7 fl (78.0-98.0); Platelet Count 197 10x3/uL (130-400); RBC Distribution Width 12.4 % (11.5-14.5); Red Blood Cell (RBC) Count 3.36 mill/uL (4.20-5.40); White Blood Cell (WBC) Count 6.2 10x3/uL (4.8-10.8)
[2022-01-08 08:28] LABS: Anion Gap 12 mmol/L (10-20); BUN (Urea Nitrogen) 4 mg/dL (7.0-18.7); Calc. Creatinine Clearance 106 mL/min (70-130); Carbon Dioxide 22 mmol/L (22-29); Chloride 106 mmol/L (98-107); Estimated GFR 97; Glucose 105 mg/dL (70-105); Potassium 3.9 mmol/L (3.5-5.1); Sodium 136 mmol/L (136-145)
[2022-01-08] MEDS ORDERED: Thiamine HCl 200 MG/2 ML VIAL SLOW IVP SCH (09:00)
[2022-01-08] MEDS ORDERED: Folic Acid 1 MG TAB PO SCH (09:00)
[2022-01-08] MEDS ORDERED: FLU VACC QS2022-23(6MOS UP)/PF 60 MCG/0.5 ML SYRINGE IM ONE (09:00)
[2022-01-08] MEDS ORDERED: Multivit, Therapeutic 1 TAB PO SCH (09:00)
[2022-01-08] MEDS: Multivitamins, Adult 10 ML, Folic Acid 1 MG, Thiamine HCl 100 MG in Dextrose 5 %-0.45 %... IV SCH (10:10)
[2022-01-08] MEDS: Ketorolac Tromethamine 30 MG/ML VIAL IVP PRN ×2 (13:32→21:54)
[2022-01-08] MEDS: HYDROcodone/Acetaminophen 5/325 mg Tablet PO PRN (16:24)
[2022-01-08] MEDS ORDERED: Lorazepam 1 MG TAB PO PRN (21:12)
[2022-01-09] MEDS: HYDROcodone/Acetaminophen 5/325 mg Tablet PO PRN ×3 (03:47→20:50)
[2022-01-09] MEDS: Lorazepam 1 MG TAB PO SCH ×3 (03:47→14:56)
[2022-01-09] MEDS: Sodium Chloride 0.9% 1,000 ML IV SCH ×3 (05:45→20:59)
[2022-01-09 07:40] LABS: #Eosinphils 0.1 thou/uL (0.0-0.7); #Lymphocytes 2.1 thou/uL (1.20-3.40); #Monocytes 0.5 thou/uL (0.11-0.59); #Neutrophils 2.8 thou/uL (1.40-6.50); %Basophils 0.4 % (0.0-1.0); %Eosinophils 2.3 % (0.0-10.0); %Lymphocytes 37.6 % (21.0-51.0); %Monocytes 9.5 % (0.0-10.0); %Neutrophils 50.3 % (42.0-75.0); Hemoglobin 11.1 g/dL (12.0-16.0); Mean Corpuscular Hemoglobin 34.8 pg (27.0-31.0); Mean Corpuscular Volume 99.4 fl (78.0-98.0); Mean Platelet Volume 8.1 fL (7.4-10.4); Platelet Count 187 10x3/uL (130-400); RBC Distribution Width 12.3 % (11.5-14.5); Red Blood Cell (RBC) Count 3.19 mill/uL (4.20-5.40); White Blood Cell (WBC) Count 5.5 10x3/uL (4.8-10.8)
[2022-01-09 08:16] LABS: ALT (SGPT) 17 U/L (8-55); AST (SGOT) 24 U/L (5-34); Albumin 3.4 g/dL (3.5-5.0); Alkaline Phosphatase 70 U/L (40-110); Anion Gap 11 mmol/L (10-20); BUN (Urea Nitrogen) Less than 4 mg/dL (7.0-18.7); Bilirubin, Total 0.6 mg/dL (0.2-1.2); Calc. Creatinine Clearance 105 mL/min (70-130); Calcium 8.1 mg/dL (7.8-10.44); Carbon Dioxide 21 mmol/L (22-29); Chloride 108 mmol/L (98-107); Estimated GFR 96; Globulin 2.8 g/dL (2.4-3.5); Glucose 96 mg/dL (70-105); Lipase 455 U/L (8-78); Potassium 3.7 mmol/L (3.5-5.1); Protein, Total 6.2 g/dL (6.0-8.3); Sodium 136 mmol/L (136-145)
[2022-01-09] MEDS: Ketorolac Tromethamine 30 MG/ML VIAL IVP PRN ×2 (10:16→19:03)
[2022-01-09] MEDS ORDERED: Magnesium 2 GM/50 ML(in water) 2 GM in Premix Bag 1 BAG IVPB SCH (11:00)
[2022-01-09] MEDS: Multivitamins, Adult 10 ML, Folic Acid 1 MG, Thiamine HCl 100 MG in Dextrose 5 %-0.45 %... IV SCH (12:41)
[2022-01-09] MEDS: Lorazepam 1 MG TAB PO PRN ×2 (17:48→23:33)
[2022-01-10 06:15] LABS: #Eosinphils 0.1 thou/uL (0.0-0.7); #Lymphocytes 2.8 thou/uL (1.20-3.40); #Monocytes 0.7 thou/uL (0.11-0.59); #Neutrophils 2.3 thou/uL (1.40-6.50); %Basophils 0.5 % (0.0-1.0); %Eosinophils 2.5 % (0.0-10.0); %Lymphocytes 46.9 % (21.0-51.0); %Monocytes 11.3 % (0.0-10.0); %Neutrophils 38.8 % (42.0-75.0); Hemoglobin 10.5 g/dL (12.0-16.0); Mean Corpuscular HGB CONC 33.5 g/dL (32.0-36.0); Mean Corpuscular Hemoglobin 32.8 pg (27.0-31.0); Mean Corpuscular Volume 97.7 fl (78.0-98.0); Platelet Count 189 10x3/uL (130-400); RBC Distribution Width 12.5 % (11.5-14.5); Red Blood Cell (RBC) Count 3.22 mill/uL (4.20-5.40); White Blood Cell (WBC) Count 5.9 10x3/uL (4.8-10.8)
[2022-01-10 06:38] LABS: Anion Gap 11 mmol/L (10-20); BUN (Urea Nitrogen) Less than 4 mg/dL (7.0-18.7); Calc. Creatinine Clearance 108 mL/min (70-130); Calcium 8.2 mg/dL (7.8-10.44); Carbon Dioxide 22 mmol/L (22-29); Chloride 107 mmol/L (98-107); Estimated GFR 99; Glucose 82 mg/dL (70-105); Magnesium 1.6 mg/dL (1.6-2.6); Potassium 3.7 mmol/L (3.5-5.1); Sodium 136 mmol/L (136-145)
[2022-01-10 06:40] LABS: Phosphorus 3.5 mg/dL (2.3-4.7)
[2022-01-10] MEDS ORDERED: Magnesium 2 GM/50 ML(in water) 2 GM in Premix Bag 1 BAG IVPB SCH (08:00)
[2022-01-10] MEDS: Ketorolac Tromethamine 30 MG/ML VIAL IVP PRN (08:18)
[2022-01-10] MEDS ORDERED: Thiamine 100 MG TAB PO SCH (09:00)
[2022-01-10] MEDS: Sodium Chloride 0.9% 1,000 ML IV SCH (09:40)
[2022-01-10] MEDS: HYDROcodone/Acetaminophen 5/325 mg Tablet PO PRN (12:42)
[2022-01-10] MEDS: Multivitamins, Adult 10 ML, Folic Acid 1 MG, Thiamine HCl 100 MG in Dextrose 5 %-0.45 %... IV SCH (13:53)
[2022-01-10 14:29] VITALS: BP 155/97; TEMP 98.3
[2022-01-10] MEDS ORDERED: Lorazepam 0.5 MG TAB PO PRN (21:12)
== END 2022-01-10 15:25 | disposition home or self-care (01) | DRG 440 ==
LOC: ERS 17:26 → T4-A 19:55 → EEVIPCON 01-09 10:12 → OBSVTOIN 01-09 10:12
PROVIDERS: ADMIT Student in an Organized Health Care Education/Training Program; ATTEND Internal Medicine
DX: K85.20 Alcohol induced acute pancreatitis without necrosis or infection (principal); Z20.822 Contact with and (suspected) exposure to COVID-19; F17.210 Nicotine dependence, cigarettes, uncomplicated; E87.6 Hypokalemia; F10.10 Alcohol abuse, uncomplicated; E83.42 Hypomagnesemia; I80.8 Phlebitis and thrombophlebitis of other sites; Z79.899 Other long term (current) drug therapy
CPT/HCPCS: 36415; 71045; 74177; 80048; 80053; 80306; 80307; 81003; 81015; 83690; 83735; 84100; 84484; 84703; 85025; 93005; J1885; J2060; J2270; J2405; J3411; J3475; J3480; J7042; J7050; Q9967; U0003; U0005

== ENCOUNTER 2022-02-25 15:34 | Emergency (ER) | payer SELFPAY ==
[2022-02-25 16:11] LABS: Hemoglobin 13.9 g/dL (12.0-16.0); Mean Corpuscular HGB CONC 35.3 g/dL (32.0-36.0); Mean Corpuscular Hemoglobin 34.4 pg (27.0-31.0); Mean Corpuscular Volume 97.5 fl (78.0-98.0); Mean Platelet Volume 7.4 fL (7.4-10.4); Platelet Count 329 10x3/uL (130-400); RBC Distribution Width 13.9 % (11.5-14.5); Red Blood Cell (RBC) Count 4.05 mill/uL (4.20-5.40); White Blood Cell (WBC) Count 6.6 10x3/uL (4.8-10.8)
[2022-02-25] MEDS ORDERED: Ondansetron PF 4 MG/2 ML Vial ONE (16:12)
[2022-02-25] MEDS ORDERED: Morphine 4 MG/ML VIAL ONE (16:12)
[2022-02-25 16:19] LABS: BHCG - Serum Negative (NEGATIVE); Pregs Control Background? CLEAR/WHITE (CLR/WHITE); Pregs Control Bar Appear? YES (CONTROL BAR)
[2022-02-25 16:27] LABS: ALT (SGPT) 20 U/L (8-55); AST (SGOT) 39 U/L (5-34); Albumin 4.8 g/dL (3.5-5.0); Alkaline Phosphatase 75 U/L (40-110); Anion Gap 22 mmol/L (10-20); BUN (Urea Nitrogen) 7 mg/dL (7.0-18.7); Bilirubin, Total 0.6 mg/dL (0.2-1.2); Calc. Creatinine Clearance 0 mL/min (70-130); Calcium 9.8 mg/dL (7.8-10.44); Carbon Dioxide 19 mmol/L (22-29); Chloride 101 mmol/L (98-107); Estimated GFR 77; Glucose 120 mg/dL (70-105); Lipase 102 U/L (8-78); Potassium 3.7 mmol/L (3.5-5.1); Protein, Total 8.8 g/dL (6.0-8.3); Sodium 138 mmol/L (136-145)
[2022-02-25 16:33] LABS: Band 4 % (5-11); Lymphocytes 49 % (21-51); MDiff Complete? YES; Monocytes 8 % (0-10); Neutrophil 39 % (42-75); Platelet Morphology Comment Appears Adequate; RBC Morphology Normal
[2022-02-25 17:05] LABS: Acetaminophen Less than 10.0 mcg/mL (10.0-30.0); Alcohol Less than 10 mg/dL (Less than 10); Anion Gap 21 mmol/L (10-20); BUN (Urea Nitrogen) 8 mg/dL (7.0-18.7); Calc. Creatinine Clearance 0 mL/min (70-130); Calcium 9.9 mg/dL (7.8-10.44); Carbon Dioxide 18 mmol/L (22-29); Chloride 103 mmol/L (98-107); Estimated GFR 84; Glucose 120 mg/dL (70-105); Potassium 3.7 mmol/L (3.5-5.1); Salicylate Less than 8.0 mg/dL (15.0-30.0); Sodium 138 mmol/L (136-145)
[2022-02-25] MEDS ORDERED: Morphine 2 MG/ML VIAL ONE (17:43)
== END 2022-02-25 18:35 | disposition home or self-care (01) ==
LOC: ERS 15:34
DX: K85.90 Acute pancreatitis without necrosis or infection, unspecified (principal); E86.0 Dehydration; F10.10 Alcohol abuse, uncomplicated; Y90.0 Blood alcohol level of less than 20 mg/100 ml; F17.210 Nicotine dependence, cigarettes, uncomplicated
CPT/HCPCS: 36415; 74177; 80053; 80307; 83690; 84703; 85025; 96374; 96375; 96376; J2270; J2272; J2405; Q9967

== ENCOUNTER 2022-04-06 12:05 | Inpatient (IN) | payer SELFPAY ==
[2022-04-06] MEDS ORDERED: Morphine 2 MG/ML VIAL ONE (13:13)
[2022-04-06] MEDS ORDERED: Ondansetron PF 4 MG/2 ML Vial ONE (13:14)
[2022-04-06] MEDS ORDERED: Iopamidol-370 76% 500 ML 1 ML ONE (13:17)
[2022-04-06 13:25] LABS: #Lymphocytes 1.6 thou/uL (1.20-3.40); #Monocytes 0.8 thou/uL (0.11-0.59); #Neutrophils 6.6 thou/uL (1.40-6.50); %Basophils 0.2 % (0.0-1.0); %Eosinophils 0.5 % (0.0-10.0); %Lymphocytes 17.7 % (21.0-51.0); %Monocytes 8.6 % (0.0-10.0); Hemoglobin 13.6 g/dL (12.0-16.0); Mean Corpuscular HGB CONC 34.7 g/dL (32.0-36.0); Mean Corpuscular Hemoglobin 35.1 pg (27.0-31.0); Mean Platelet Volume 7.8 fL (7.4-10.4); Platelet Count 271 10x3/uL (130-400); RBC Distribution Width 13.7 % (11.5-14.5); Red Blood Cell (RBC) Count 3.88 mill/uL (4.20-5.40)
[2022-04-06 13:37] LABS: BHCG - Serum Negative (NEGATIVE); Pregs Control Background? CLEAR/WHITE (CLR/WHITE); Pregs Control Bar Appear? YES (CONTROL BAR)
[2022-04-06 13:49] LABS: ALT (SGPT) 27 U/L (8-55); AST (SGOT) 59 U/L (5-34); Albumin 4.8 g/dL (3.5-5.0); Alkaline Phosphatase 91 U/L (40-110); Anion Gap 17 mmol/L (10-20); BUN (Urea Nitrogen) 5 mg/dL (7.0-18.7); Bilirubin, Total 1.3 mg/dL (0.2-1.2); Calc. Creatinine Clearance 0 mL/min (70-130); Calcium 10.2 mg/dL (7.8-10.44); Carbon Dioxide 22 mmol/L (22-29); Chloride 99 mmol/L (98-107); Estimated GFR 89; Glucose 121 mg/dL (70-105); Lipase 940 U/L (8-78); Potassium 3.1 mmol/L (3.5-5.1); Protein, Total 8.8 g/dL (6.0-8.3); Sodium 135 mmol/L (136-145)
[2022-04-06 13:50] LABS: Bacteria/HPF 1+ HPF (None Seen); Bilirubin Negative (Negative); Blood, Urine 2+ (Negative); Clarity Turbid (Clear); Glucose, Urine (Dipstick) Normal (Negative); Ketone, Urine 60 mg/dL (Negative); Leukocyte 75 Leu/uL (Negative); Nitrite Negative (Negative); Protein, Urine (Dipstick) 100 mg/dL (Neg-Trace); pH, Urine 6.5 (5.0-9.0)
[2022-04-06] MEDS ORDERED: Famotidine/PF 20 mg/2ml Vial ONE (14:16)
[2022-04-06] MEDS ORDERED: LORazepam 2 MG/ML SYR.(CARPUJECT) ONE (14:16)
[2022-04-06] MEDS ORDERED: Lorazepam 2 MG/ML VIAL IM PRN (14:21)
[2022-04-06] MEDS ORDERED: Ondansetron ODT 4 MG TAB PO PRN (14:21)
[2022-04-06] MEDS ORDERED: Lorazepam 1 MG TAB PO PRN (14:21)
[2022-04-06] MEDS ORDERED: Senokot S 8.6-50 MG TAB PO PRN (14:21)
[2022-04-06] MEDS ORDERED: Electrolyte Replacement Protocol 1 EACH FS SCH (14:30)
[2022-04-06 16:12] LABS: Amphetamine Not Detected (NotDetected); Barbiturates Screen Not Detected (NotDetected); Benzodiazepine Screen Not Detected (NotDetected); Cocaine Metabolite Screen Not Detected (NotDetected); Methadone Not Detected (NotDetected); Methamphetamine Not Detected (NotDetected); Opiate Screen Detected (NotDetected); Oxycodone Screen Not Detected (NotDetected); Phencyclidine (PCP) Not Detected (NotDetected); THC/Cannabinoid Screen Detected (NotDetected); Tricyclic Screen Not Detected (NotDetected)
[2022-04-06] MEDS: Morphine 4 MG/ML VIAL SLOW IVP PRN (17:25)
[2022-04-06] MEDS: Lactated Ringer's 1,000 ML IV SCH (17:27)
[2022-04-06 17:56] VITALS: BMI 24.7
[2022-04-06] MEDS ORDERED: FLU VACC QS2022-23(6MOS UP)/PF 60 MCG/0.5 ML SYRINGE IM ONE (18:00)
[2022-04-06] MEDS: Thiamine HCl 200 MG/2 ML VIAL SLOW IVP SCH (18:23)
[2022-04-06] MEDS: Ondansetron PF 4 MG/2 ML Vial IVP PRN (18:24)
[2022-04-06] MEDS: Potassium Chloride 20 MEQ in Premix Bag 1 BAG IVPB SCH ×2 (18:25)
[2022-04-06] MEDS: Lorazepam 1 MG TAB PO SCH ×2 (18:26→21:30)
[2022-04-06 18:47] LABS: Acetaminophen Less than 10.0 mcg/mL (10.0-30.0); Alcohol Less than 10 mg/dL (Less than 10); Salicylate Less than 8.0 mg/dL (15.0-30.0)
[2022-04-06 18:54] LABS: Magnesium 1.9 mg/dL (1.6-2.6); Phosphorus 3.2 mg/dL (2.3-4.7)
[2022-04-06] MEDS: chlordiazePOXIDE HCl 25 MG CAP PO SCH (18:54)
[2022-04-06] MEDS: Famotidine/PF 20 mg/2ml Vial SLOW IVP SCH (21:29)
[2022-04-06] MEDS: Nitrofurantoin Monohyd/M-Cryst 100 MG CAP PO SCH (21:29)
[2022-04-07] MEDS: chlordiazePOXIDE HCl 25 MG CAP PO SCH ×4 (01:03→17:33)
[2022-04-07] MEDS: Morphine 4 MG/ML VIAL SLOW IVP PRN ×4 (04:14→20:13)
[2022-04-07 05:20] LABS: #Eosinphils 0.1 thou/uL (0.0-0.7); #Lymphocytes 1.9 thou/uL (1.20-3.40); #Monocytes 0.6 thou/uL (0.11-0.59); #Neutrophils 3.3 thou/uL (1.40-6.50); %Basophils 0.5 % (0.0-1.0); %Eosinophils 1.6 % (0.0-10.0); %Lymphocytes 32.1 % (21.0-51.0); %Monocytes 9.9 % (0.0-10.0); %Neutrophils 55.8 % (42.0-75.0); Hemoglobin 11.3 g/dL (12.0-16.0); Mean Corpuscular HGB CONC 34.5 g/dL (32.0-36.0); Mean Corpuscular Hemoglobin 36.1 pg (27.0-31.0); Mean Platelet Volume 7.7 fL (7.4-10.4); Platelet Count 236 10x3/uL (130-400); RBC Distribution Width 13.7 % (11.5-14.5); Red Blood Cell (RBC) Count 3.14 mill/uL (4.20-5.40); White Blood Cell (WBC) Count 5.8 10x3/uL (4.8-10.8)
[2022-04-07] MEDS: Lactated Ringer's 1,000 ML IV SCH ×3 (05:43→17:34)
[2022-04-07 05:47] LABS: ALT (SGPT) 17 U/L (8-55); AST (SGOT) 31 U/L (5-34); Albumin 3.5 g/dL (3.5-5.0); Alkaline Phosphatase 69 U/L (40-110); Anion Gap 13 mmol/L (10-20); BUN (Urea Nitrogen) Less than 4 mg/dL (7.0-18.7); Bilirubin, Total 0.9 mg/dL (0.2-1.2); Calc. Creatinine Clearance 103 mL/min (70-130); Calcium 9.3 mg/dL (7.8-10.44); Carbon Dioxide 23 mmol/L (22-29); Chloride 103 mmol/L (98-107); Estimated GFR 107; Globulin 3.2 g/dL (2.4-3.5); Glucose 97 mg/dL (70-105); Potassium 3.1 mmol/L (3.5-5.1); Protein, Total 6.7 g/dL (6.0-8.3); Sodium 136 mmol/L (136-145)
[2022-04-07 07:38] LABS: Cardiac Risk 2.6 (Less than 4.5)
[2022-04-07] MEDS ORDERED: Magnesium 2 GM/50 ML(in water) 2 GM in Premix Bag 1 BAG IVPB SCH (08:00)
[2022-04-07] MEDS ORDERED: Potassium Chloride 20 MEQ TAB PO SCH (08:00)
[2022-04-07] MEDS ORDERED: Potassium Chloride 40 MEQ in Premix Bag 1 BAG IVPB SCH (08:00)
[2022-04-07] MEDS: Nitrofurantoin Monohyd/M-Cryst 100 MG CAP PO SCH ×2 (09:37→20:14)
[2022-04-07] MEDS: Famotidine/PF 20 mg/2ml Vial SLOW IVP SCH ×2 (09:37→20:14)
[2022-04-07] MEDS: Multivit, Therapeutic 1 TAB PO SCH (09:38)
[2022-04-07] MEDS: Folic Acid 1 MG TAB PO SCH (09:38)
[2022-04-07] MEDS: Ondansetron PF 4 MG/2 ML Vial IVP PRN ×3 (09:49→20:14)
[2022-04-07] MEDS: Thiamine HCl 200 MG/2 ML VIAL SLOW IVP SCH (14:19)
[2022-04-07] MEDS ORDERED: Lorazepam 1 MG TAB PO PRN (14:22)
[2022-04-08] MEDS: chlordiazePOXIDE HCl 25 MG CAP PO SCH ×5 (00:07→20:58)
[2022-04-08] MEDS: Morphine 4 MG/ML VIAL SLOW IVP PRN ×2 (00:45→05:19)
[2022-04-08 05:06] LABS: #Basophils 0.1 thou/uL (0.0-0.2); #Eosinphils 0.1 thou/uL (0.0-0.7); #Lymphocytes 2.8 thou/uL (1.20-3.40); #Monocytes 0.7 thou/uL (0.11-0.59); #Neutrophils 3.4 thou/uL (1.40-6.50); %Basophils 0.7 % (0.0-1.0); %Lymphocytes 39.6 % (21.0-51.0); %Monocytes 9.5 % (0.0-10.0); %Neutrophils 48.2 % (42.0-75.0); Hemoglobin 10.4 g/dL (12.0-16.0); Mean Corpuscular HGB CONC 35.4 g/dL (32.0-36.0); Mean Corpuscular Hemoglobin 36.9 pg (27.0-31.0); Mean Platelet Volume 7.7 fL (7.4-10.4); Platelet Count 221 10x3/uL (130-400); RBC Distribution Width 13.4 % (11.5-14.5); Red Blood Cell (RBC) Count 2.81 mill/uL (4.20-5.40)
[2022-04-08] MEDS: Ondansetron PF 4 MG/2 ML Vial IVP PRN ×3 (05:19→17:48)
[2022-04-08] MEDS: Lactated Ringer's 1,000 ML IV SCH ×2 (05:20→16:13)
[2022-04-08 05:26] LABS: ALT (SGPT) 16 U/L (8-55); AST (SGOT) 32 U/L (5-34); Albumin 3.7 g/dL (3.5-5.0); Alkaline Phosphatase 68 U/L (40-110); Anion Gap 13 mmol/L (10-20); BUN (Urea Nitrogen) Less than 4 mg/dL (7.0-18.7); Bilirubin, Total 0.5 mg/dL (0.2-1.2); Calc. Creatinine Clearance 101 mL/min (70-130); Calcium 8.8 mg/dL (7.8-10.44); Carbon Dioxide 22 mmol/L (22-29); Chloride 103 mmol/L (98-107); Estimated GFR 105; Glucose 116 mg/dL (70-105); Magnesium 1.5 mg/dL (1.6-2.6); Potassium 3.1 mmol/L (3.5-5.1); Protein, Total 6.7 g/dL (6.0-8.3); Sodium 135 mmol/L (136-145)
[2022-04-08] MEDS: Nicotine 21 MG PATCH TD SCH (06:07)
[2022-04-08] MEDS ORDERED: Potassium Chloride 20 MEQ TAB PO SCH (08:00)
[2022-04-08] MEDS ORDERED: Magnesium 2 GM/50 ML(in water) 2 GM in Premix Bag 1 BAG IVPB SCH (08:00)
[2022-04-08] MEDS ORDERED: Acetaminophen 500 MG TAB PO PRN (09:07)
[2022-04-08] MEDS: Famotidine/PF 20 mg/2ml Vial SLOW IVP SCH ×2 (09:29→20:59)
[2022-04-08] MEDS: Nitrofurantoin Monohyd/M-Cryst 100 MG CAP PO SCH ×2 (09:35→20:59)
[2022-04-08] MEDS: Folic Acid 1 MG TAB PO SCH (09:35)
[2022-04-08] MEDS: Multivit, Therapeutic 1 TAB PO SCH (09:35)
[2022-04-08] MEDS ORDERED: Ibuprofen 800 MG TAB PO PRN (10:33)
[2022-04-08] MEDS ORDERED: Ketorolac Tromethamine 30 MG/ML VIAL IVP SCH ×2 (12:00→22:45)
[2022-04-08 14:17] LABS: Amphetamine Not Detected (NotDetected); Barbiturates Screen Not Detected (NotDetected); Benzodiazepine Screen Detected (NotDetected); Cocaine Metabolite Screen Not Detected (NotDetected); Methadone Not Detected (NotDetected); Methamphetamine Not Detected (NotDetected); Opiate Screen Detected (NotDetected); Oxycodone Screen Not Detected (NotDetected); Phencyclidine (PCP) Not Detected (NotDetected); THC/Cannabinoid Screen Detected (NotDetected); Tricyclic Screen Not Detected (NotDetected)
[2022-04-08] MEDS ORDERED: Lorazepam 1 MG TAB PO PRN (14:22)
[2022-04-08] MEDS ORDERED: Lorazepam 0.5 MG TAB PO SCH (14:30)
[2022-04-08] MEDS: Thiamine HCl 200 MG/2 ML VIAL SLOW IVP SCH (15:21)
[2022-04-08] MEDS ORDERED: Lidocaine 5% Patch TD SCH (21:35)
[2022-04-08] MEDS ORDERED: hydrOXYzine 25 MG/ML VIAL IM SCH (23:45)
[2022-04-09] MEDS: Ondansetron PF 4 MG/2 ML Vial IVP PRN (00:39)
[2022-04-09] MEDS: Lactated Ringer's 1,000 ML IV SCH (03:44)
[2022-04-09] MEDS: chlordiazePOXIDE HCl 25 MG CAP PO SCH (05:10)
[2022-04-09 05:38] LABS: #Eosinphils 0.1 thou/uL (0.0-0.7); #Lymphocytes 2.5 thou/uL (1.20-3.40); #Monocytes 0.5 thou/uL (0.11-0.59); #Neutrophils 2.8 thou/uL (1.40-6.50); %Basophils 0.7 % (0.0-1.0); %Eosinophils 1.7 % (0.0-10.0); %Lymphocytes 41.8 % (21.0-51.0); %Monocytes 8.8 % (0.0-10.0); %Neutrophils 47.1 % (42.0-75.0); Hemoglobin 10.9 g/dL (12.0-16.0); Mean Corpuscular HGB CONC 34.5 g/dL (32.0-36.0); Mean Corpuscular Hemoglobin 36.3 pg (27.0-31.0); Platelet Count 248 10x3/uL (130-400); RBC Distribution Width 13.7 % (11.5-14.5)
[2022-04-09] MEDS: Nicotine 21 MG PATCH TD SCH (05:40)
[2022-04-09 05:57] LABS: ALT (SGPT) 16 U/L (8-55); AST (SGOT) 30 U/L (5-34); Albumin 3.7 g/dL (3.5-5.0); Alkaline Phosphatase 70 U/L (40-110); Anion Gap 13 mmol/L (10-20); BUN (Urea Nitrogen) Less than 4 mg/dL (7.0-18.7); Bilirubin, Total 0.5 mg/dL (0.2-1.2); Calc. Creatinine Clearance 95 mL/min (70-130); Calcium 9.1 mg/dL (7.8-10.44); Carbon Dioxide 22 mmol/L (22-29); Chloride 107 mmol/L (98-107); Estimated GFR 97; Glucose 83 mg/dL (70-105); Potassium 3.9 mmol/L (3.5-5.1); Protein, Total 6.7 g/dL (6.0-8.3); Sodium 138 mmol/L (136-145)
[2022-04-09] MEDS: Nitrofurantoin Monohyd/M-Cryst 100 MG CAP PO SCH (08:50)
[2022-04-09] MEDS: Famotidine/PF 20 mg/2ml Vial SLOW IVP SCH (08:50)
[2022-04-09] MEDS: Multivit, Therapeutic 1 TAB PO SCH (08:50)
[2022-04-09] MEDS: Folic Acid 1 MG TAB PO SCH (08:50)
[2022-04-09] MEDS ORDERED: Thiamine 100 MG TAB PO SCH (09:00)
[2022-04-09] MEDS ORDERED: Transdermal Patch Removal TOP SCH (09:35)
[2022-04-09 11:30] VITALS: BP 135/90; TEMP 98.8
[2022-04-09] MEDS ORDERED: chlordiazePOXIDE HCl 25 MG CAP PO SCH (12:00)
[2022-04-09] MEDS ORDERED: Lorazepam 0.5 MG TAB PO PRN (14:22)
== END 2022-04-09 14:15 | disposition home or self-care (01) | DRG 439 ==
LOC: ERS 12:05 → 2NO 16:23
PROVIDERS: ADMIT Family Medicine; ATTEND Student in an Organized Health Care Education/Training Program
PROC: HZ2ZZZZ Detoxification Services for Substance Abuse Treatment (ICD-10-PCS; principal; 2022-04-06)
DX: K85.20 Alcohol induced acute pancreatitis without necrosis or infection (principal); F10.139 Alcohol abuse with withdrawal, unspecified; N39.0 Urinary tract infection, site not specified; Z20.822 Contact with and (suspected) exposure to COVID-19; F10.10 Alcohol abuse, uncomplicated; F17.210 Nicotine dependence, cigarettes, uncomplicated; E87.6 Hypokalemia; E83.42 Hypomagnesemia; Z28.21 Immunization not carried out because of patient refusal; Z79.899 Other long term (current) drug therapy
CPT/HCPCS: 36415; 74177; 80053; 80061; 80306; 80307; 81003; 81015; 83690; 83735; 84100; 84484; 84703; 85025; 87086; 93005; 96374; 96375; J1885; J2060; J2270; J2272; J2405; J3410; J3411; J3475; J3480; J7120; Q9967; S0028; U0003; U0005

== ENCOUNTER 2022-04-14 23:55 | Emergency (ER) | payer OTHER, SELFPAY ==
[2022-04-15 01:50] LABS: Hemoglobin 11.8 g/dL (12.0-16.0); Mean Corpuscular HGB CONC 35.3 g/dL (32.0-36.0); Mean Corpuscular Hemoglobin 35.9 pg (27.0-31.0); Mean Platelet Volume 7.5 fL (7.4-10.4); Platelet Count 306 10x3/uL (130-400); RBC Distribution Width 13.2 % (11.5-14.5); Red Blood Cell (RBC) Count 3.28 mill/uL (4.20-5.40); White Blood Cell (WBC) Count 6.6 10x3/uL (4.8-10.8)
[2022-04-15 02:16] LABS: Band 1 % (5-11); Eosinophils 4 % (0-10); Lymphocytes 47 % (21-51); MDiff Complete? YES; Monocytes 11 % (0-10); Neutrophil 37 % (42-75); Platelet Morphology Comment Appears Adequate; Polychromasia SLIGHT = 2-3 cells (100X) (0-2/hpf)
[2022-04-15 02:20] LABS: ALT (SGPT) 32 U/L (8-55); AST (SGOT) 59 U/L (5-34); Alkaline Phosphatase 75 U/L (40-110); Anion Gap 16 mmol/L (10-20); BUN (Urea Nitrogen) 14 mg/dL (7.0-18.7); Bilirubin, Total 0.3 mg/dL (0.2-1.2); Calc. Creatinine Clearance 0 mL/min (70-130); Calcium 9.1 mg/dL (7.8-10.44); Carbon Dioxide 23 mmol/L (22-29); Chloride 108 mmol/L (98-107); Estimated GFR 62; Globulin 3.9 g/dL (2.4-3.5); Glucose 120 mg/dL (70-105); Lipase 249 U/L (8-78); Magnesium 1.9 mg/dL (1.6-2.6); Potassium 4.2 mmol/L (3.5-5.1); Protein, Total 7.9 g/dL (6.0-8.3); Sodium 143 mmol/L (136-145)
== END 2022-04-15 03:39 | disposition home or self-care (01) ==
LOC: ERS 23:55
DX: S70.212A Abrasion, left hip, initial encounter (principal); S80.212A Abrasion, left knee, initial encounter; S80.211A Abrasion, right knee, initial encounter; S60.512A Abrasion of left hand, initial encounter; S50.312A Abrasion of left elbow, initial encounter; K85.90 Acute pancreatitis without necrosis or infection, unspecified; V03.99XA Pedestrian with other conveyance injured in collision with car, pick-up truck or van, unspecified whether traffic or nontraffic accident, initial encounter
CPT/HCPCS: 71045; 72170; 80053; 83690; 83735; 84702; 85025; 96360; 96361

== ENCOUNTER 2022-06-25 17:53 | Inpatient (IN) | payer SELFPAY ==
[2022-06-25] MEDS ORDERED: Ketorolac Tromethamine 30 MG/ML VIAL ONE ×2 (18:33→20:50)
[2022-06-25] MEDS ORDERED: Haloperidol Lactate 5 MG/ML VIAL ONE (18:33)
[2022-06-25 18:40] LABS: BHCG - Serum Negative (NEGATIVE); Pregs Control Background? CLEAR/WHITE (CLR/WHITE); Pregs Control Bar Appear? YES (CONTROL BAR)
[2022-06-25 18:40] LABS: ALT (SGPT) 50 U/L (8-55); AST (SGOT) 79 U/L (5-34); Alkaline Phosphatase 129 U/L (40-110); Anion Gap 18 mmol/L (10-20); BUN (Urea Nitrogen) 5 mg/dL (7.0-18.7); Bilirubin, Total 0.3 mg/dL (0.2-1.2); Calc. Creatinine Clearance 0 mL/min (70-130); Calcium 8.9 mg/dL (7.8-10.44); Carbon Dioxide 20 mmol/L (22-29); Chloride 106 mmol/L (98-107); Estimated GFR 107; Globulin 3.7 g/dL (2.4-3.5); Glucose 105 mg/dL (70-105); Lipase 408 U/L (8-78); Potassium 3.3 mmol/L (3.5-5.1); Protein, Total 7.7 g/dL (6.0-8.3); Sodium 141 mmol/L (136-145)
[2022-06-25 18:58] LABS: Mean Corpuscular HGB CONC 34.3 g/dL (32.0-36.0); Mean Corpuscular Hemoglobin 35.3 pg (27.0-31.0); Mean Platelet Volume 7.8 fL (7.4-10.4); Platelet Count 275 10x3/uL (130-400); White Blood Cell (WBC) Count 4.7 10x3/uL (4.8-10.8)
[2022-06-25 19:17] LABS: Lymphocytes 52 % (21-51); MDiff Complete? YES; Macrocytosis SLIGHT = 6-15 cells (100X) (0-5/hpf); Monocytes 10 % (0-10); Neutrophil 35 % (42-75); Platelet Morphology Comment Appears Adequate; Reactive Lymphocytes 3 % (0-10); Target Cells SLIGHT = 2-5 cells (100X) (0-1/hpf)
[2022-06-25 21:39] LABS: Bilirubin Negative (Negative); Blood, Urine Negative (Negative); Clarity Clear (Clear); Glucose, Urine (Dipstick) Normal (Negative); Ketone, Urine Trace mg/dL (Negative); Leukocyte Negative Leu/uL (Negative); Nitrite Negative (Negative); Protein, Urine (Dipstick) 10 mg/dL (Neg-Trace); Specific Gravity, Urine 1.018 (1.002-1.036); Urobilinogen Normal mg/dL (Less than 2)
[2022-06-25 21:41] LABS: Pregnancy Test - Urine (BHCG) Negative (Negative); Pregu Control Background? CLEAR/WHITE (CLR/WHITE); Pregu Control Bar Appear? YES (CONTROL BAR); Specific Gravity 1.018 (1.002-1.036)
[2022-06-25] MEDS ORDERED: Senokot S 8.6-50 MG TAB PO PRN (22:02)
[2022-06-25] MEDS ORDERED: Calcium Carbonate 500 MG ChewTAB PO PRN (22:02)
[2022-06-25] MEDS ORDERED: Ondansetron ODT 4 MG TAB PO PRN (22:02)
[2022-06-25] MEDS ORDERED: Lorazepam 2 MG/ML VIAL IM PRN (22:04)
[2022-06-25] MEDS ORDERED: Lorazepam 1 MG TAB PO PRN (22:04)
[2022-06-25 22:15] VITALS: BMI 24.4
[2022-06-25] MEDS ORDERED: Electrolyte Replacement Protocol 1 EACH FS SCH (22:15)
[2022-06-25] MEDS: Morphine 2 MG/ML VIAL SLOW IVP PRN (22:29)
[2022-06-25] MEDS ORDERED: Lactated Ringer's 500 ML IV SCH (22:30)
[2022-06-25] MEDS: Thiamine HCl 200 MG/2 ML VIAL SLOW IVP SCH (22:30)
[2022-06-25] MEDS: Acetaminophen 325 MG TAB PO PRN (22:32)
[2022-06-25] MEDS: Lorazepam 1 MG TAB PO SCH (22:32)
[2022-06-25] MEDS: Multivit, Therapeutic 1 TAB PO SCH (22:32)
[2022-06-25] MEDS ORDERED: Multivit, Therapeutic 1 TAB PO SCH (23:00)
[2022-06-25] MEDS ORDERED: Lactated Ringer's 1,000 ML IV SCH (23:00)
[2022-06-25] MEDS ORDERED: Folic Acid 1 MG TAB PO SCH (23:00)
[2022-06-26] MEDS: Morphine 2 MG/ML VIAL SLOW IVP PRN ×5 (02:12→21:22)
[2022-06-26] MEDS: Lorazepam 1 MG TAB PO SCH ×2 (05:25→17:45)
[2022-06-26 07:36] LABS: Hemoglobin 11.5 g/dL (12.0-16.0); Mean Corpuscular HGB CONC 33.8 g/dL (32.0-36.0); Mean Corpuscular Hemoglobin 35.1 pg (27.0-31.0); Mean Platelet Volume 8.1 fL (7.4-10.4); Platelet Count 219 10x3/uL (130-400); RBC Distribution Width 13.9 % (11.5-14.5); Red Blood Cell (RBC) Count 3.27 mill/uL (4.20-5.40); White Blood Cell (WBC) Count 4.9 10x3/uL (4.8-10.8)
[2022-06-26 08:29] LABS: ALT (SGPT) 42 U/L (8-55); AST (SGOT) 66 U/L (5-34); Albumin 3.7 g/dL (3.5-5.0); Alkaline Phosphatase 114 U/L (40-110); Anion Gap 15 mmol/L (10-20); BUN (Urea Nitrogen) 4 mg/dL (7.0-18.7); Bilirubin, Total 0.6 mg/dL (0.2-1.2); Calc. Creatinine Clearance 111 mL/min (70-130); Calcium 8.3 mg/dL (7.8-10.44); Carbon Dioxide 24 mmol/L (22-29); Chloride 102 mmol/L (98-107); Estimated GFR 114; Globulin 3.1 g/dL (2.4-3.5); Glucose 80 mg/dL (70-105); Potassium 2.8 mmol/L (3.5-5.1); Protein, Total 6.8 g/dL (6.0-8.3); Sodium 138 mmol/L (136-145)
[2022-06-26] MEDS ORDERED: Potassium Chloride 40 MEQ in Premix Bag 1 BAG IVPB SCH (09:00)
[2022-06-26 09:10] LABS: Hypochromia SLIGHT = 6-15 cells (100X) (0-5/hpf); Lymphocytes 66 % (21-51); MDiff Complete? YES; Monocytes 3 % (0-10); Neutrophil 31 % (42-75); Platelet Morphology Comment Appears Adequate
[2022-06-26] MEDS: Folic Acid 1 MG TAB PO SCH (09:38)
[2022-06-26] MEDS: Multivit, Therapeutic 1 TAB PO SCH (09:38)
[2022-06-26] MEDS: Famotidine/PF 20 mg/2ml Vial SLOW IVP SCH ×2 (09:38→21:08)
[2022-06-26] MEDS: Famotidine 20 MG TAB PO SCH ×2 (09:39→21:08)
[2022-06-26] MEDS: Ondansetron PF 4 MG/2 ML Vial IVP PRN (09:42)
[2022-06-26] MEDS: Potassium Chloride 20 MEQ in Premix Bag 1 BAG IVPB SCH ×3 (09:53→17:42)
[2022-06-26 11:27] LABS: Syphilis Antibody Nonreactive (Nonreactive); Syphilis Antibody Index 0.05 S/CO (<1.00 Non-Reactive)
[2022-06-26] MEDS: Acetaminophen 325 MG TAB PO PRN (14:59)
[2022-06-26 21:01] LABS: Amphetamine Not Detected (NotDetected); Barbiturates Screen Not Detected (NotDetected); Benzodiazepine Screen Detected (NotDetected); Cocaine Metabolite Screen Not Detected (NotDetected); Methadone Not Detected (NotDetected); Methamphetamine Not Detected (NotDetected); Opiate Screen Detected (NotDetected); Oxycodone Screen Not Detected (NotDetected); Phencyclidine (PCP) Not Detected (NotDetected); THC/Cannabinoid Screen Detected (NotDetected); Tricyclic Screen Not Detected (NotDetected)
[2022-06-26] MEDS ORDERED: Lorazepam 1 MG TAB PO PRN (22:04)
[2022-06-27] MEDS ORDERED: Potassium Chloride 20 MEQ in Premix Bag 1 BAG IVPB SCH (01:15)
[2022-06-27] MEDS: Potassium Chloride 20 MEQ in Premix Bag 1 BAG IVPB SCH (01:28)
[2022-06-27] MEDS: Thiamine HCl 200 MG/2 ML VIAL SLOW IVP SCH ×2 (01:28→22:40)
[2022-06-27] MEDS: Lorazepam 1 MG TAB PO PRN ×3 (04:33→17:12)
[2022-06-27 07:32] LABS: #Eosinphils 0.1 thou/uL (0.0-0.7); #Monocytes 0.6 thou/uL (0.11-0.59); #Neutrophils 2.1 thou/uL (1.40-6.50); %Basophils 0.4 % (0.0-1.0); %Eosinophils 1.3 % (0.0-10.0); %Monocytes 12.6 % (0.0-10.0); %Neutrophils 46.3 % (42.0-75.0); Hemoglobin 11.2 g/dL (12.0-16.0); Mean Corpuscular Hemoglobin 33.5 pg (27.0-31.0); Mean Corpuscular Volume 101.5 fl (78.0-98.0); Mean Platelet Volume 10.2 fL (7.4-10.4); Platelet Count 225 10x3/uL (130-400); RBC Distribution Width 14.9 % (11.5-14.5); Red Blood Cell (RBC) Count 3.34 mill/uL (4.20-5.40); White Blood Cell (WBC) Count 4.6 10x3/uL (4.8-10.8)
[2022-06-27 07:40] LABS: ALT (SGPT) 35 U/L (8-55); AST (SGOT) 47 U/L (5-34); Albumin 3.6 g/dL (3.5-5.0); Alkaline Phosphatase 110 U/L (40-110); Anion Gap 13 mmol/L (10-20); BUN (Urea Nitrogen) Less than 4 mg/dL (7.0-18.7); Bilirubin, Total 0.6 mg/dL (0.2-1.2); Calc. Creatinine Clearance 108 mL/min (70-130); Calcium 8.4 mg/dL (7.8-10.44); Carbon Dioxide 24 mmol/L (22-29); Chloride 101 mmol/L (98-107); Estimated GFR 110; Globulin 3.2 g/dL (2.4-3.5); Glucose 81 mg/dL (70-105); Potassium 3.1 mmol/L (3.5-5.1); Protein, Total 6.8 g/dL (6.0-8.3); Sodium 135 mmol/L (136-145)
[2022-06-27] MEDS: Famotidine/PF 20 mg/2ml Vial SLOW IVP SCH ×2 (08:21→20:03)
[2022-06-27] MEDS: Famotidine 20 MG TAB PO SCH ×2 (08:22→20:02)
[2022-06-27] MEDS: Folic Acid 1 MG TAB PO SCH (08:22)
[2022-06-27] MEDS: Multivit, Therapeutic 1 TAB PO SCH (08:22)
[2022-06-27] MEDS: Morphine 2 MG/ML VIAL SLOW IVP PRN ×2 (08:24→12:46)
[2022-06-27 08:57] LABS: Lipase 224 U/L (8-78)
[2022-06-27] MEDS ORDERED: Potassium Chloride 20 MEQ TAB PO SCH (09:00)
[2022-06-27] MEDS: Ondansetron PF 4 MG/2 ML Vial IVP PRN (10:03)
[2022-06-27] MEDS: Ketorolac Tromethamine 30 MG/ML VIAL IVP PRN ×2 (15:42→22:40)
[2022-06-27] MEDS: HYDROcodone/Acetaminophen 5/325 mg Tablet PO PRN (20:30)
[2022-06-27] MEDS: Lorazepam 0.5 MG TAB PO SCH (22:41)
[2022-06-28] MEDS: HYDROcodone/Acetaminophen 5/325 mg Tablet PO PRN ×2 (00:22→08:27)
[2022-06-28] MEDS: Lorazepam 0.5 MG TAB PO SCH ×3 (04:37→10:21)
[2022-06-28] MEDS: Ketorolac Tromethamine 30 MG/ML VIAL IVP PRN (04:58)
[2022-06-28 06:40] LABS: ALT (SGPT) 34 U/L (8-55); AST (SGOT) 51 U/L (5-34); Albumin 3.7 g/dL (3.5-5.0); Alkaline Phosphatase 108 U/L (40-110); Anion Gap 14 mmol/L (10-20); BUN (Urea Nitrogen) Less than 4 mg/dL (7.0-18.7); Bilirubin, Total 0.7 mg/dL (0.2-1.2); Calc. Creatinine Clearance 104 mL/min (70-130); Calcium 8.6 mg/dL (7.8-10.44); Carbon Dioxide 24 mmol/L (22-29); Chloride 100 mmol/L (98-107); Estimated GFR 105; Globulin 3.1 g/dL (2.4-3.5); Glucose 85 mg/dL (70-105); Lipase 135 U/L (8-78); Potassium 2.8 mmol/L (3.5-5.1); Protein, Total 6.8 g/dL (6.0-8.3); Sodium 135 mmol/L (136-145)
[2022-06-28] MEDS: Ondansetron PF 4 MG/2 ML Vial IVP PRN (08:01)
[2022-06-28] MEDS: Famotidine 20 MG TAB PO SCH (08:26)
[2022-06-28] MEDS: Potassium Chloride 20 MEQ TAB PO SCH ×2 (08:26→10:24)
[2022-06-28] MEDS: Multivit, Therapeutic 1 TAB PO SCH (08:26)
[2022-06-28] MEDS: Folic Acid 1 MG TAB PO SCH (08:26)
[2022-06-28] MEDS: Famotidine/PF 20 mg/2ml Vial SLOW IVP SCH (08:27)
[2022-06-28 08:53] VITALS: BP 134/86; TEMP 98.2
[2022-06-28] MEDS ORDERED: Thiamine 100 MG TAB PO SCH (09:00)
[2022-06-28] MEDS ORDERED: Lorazepam 0.5 MG TAB PO PRN (22:04)
== END 2022-06-28 10:30 | disposition home or self-care (01) | DRG 440 ==
LOC: ERS 17:53 → SURG B 21:01 → OBSVTOIN 06-26 11:53
PROVIDERS: ADMIT Student in an Organized Health Care Education/Training Program; ATTEND Hospitalist
DX: K85.20 Alcohol induced acute pancreatitis without necrosis or infection (principal); K86.0 Alcohol-induced chronic pancreatitis; Z79.899 Other long term (current) drug therapy; F17.210 Nicotine dependence, cigarettes, uncomplicated; E87.6 Hypokalemia; Z71.6 Tobacco abuse counseling
CPT/HCPCS: 36415; 80053; 80306; 81003; 81025; 83690; 84703; 85025; 86780; 96374; 96375; 96376; G0378; J1630; J1885; J2272; J2405; J3411; J3480; J7120; S0028

== ENCOUNTER 2023-11-23 09:18 | Inpatient (IN) | payer SELFPAY ==
[2023-11-23] MEDS ORDERED: Ketorolac Tromethamine 30 MG (1 mL) VIAL ONE (09:37)
[2023-11-23] MEDS ORDERED: Ondansetron PF 4 MG/2 ML Vial ONE ×2 (09:38→17:05)
[2023-11-23 09:59] LABS: BHCG - Serum Negative (NEGATIVE); Pregs Control Background? CLEAR/WHITE (CLR/WHITE); Pregs Control Bar Appear? YES (CONTROL BAR)
[2023-11-23 10:04] LABS: Hematocrit 40.8 % (36.0-47.0); Hemoglobin 14.3 g/dL (12.0-16.0); Mean Corpuscular Hemoglobin 32.6 pg (27.0-31.0); Mean Corpuscular Volume 93.2 fL (78.0-98.0); Mean Platelet Volume 9.8 fL (7.4-10.4); Platelet Count 296 10x3/uL (130-400); RBC Distribution Width 13.7 % (11.5-14.5); Red Blood Cell (RBC) Count 4.38 mill/uL (4.20-5.40)
[2023-11-23 10:11] LABS: INR-International Normal Ratio 1.1; PTT 27.5 sec (22.9-36.1); Prothrombin Time 13.7 sec (12.0-14.7)
[2023-11-23 10:18] LABS: ALT (SGPT) 23 U/L (8-55); AST (SGOT) 20 U/L (5-34); Albumin 4.1 g/dL (3.5-5.0); Alkaline Phosphatase 69 U/L (40-110); Anion Gap 12 mmol/L (10-20); BUN (Urea Nitrogen) 7 mg/dL (7.0-18.7); Bilirubin, Total 0.5 mg/dL (0.2-1.2); Calc. Creatinine Clearance 0 mL/min (70-130); Calcium 9.5 mg/dL (7.8-10.44); Carbon Dioxide 24 mmol/L (22-29); Chloride 105 mmol/L (98-107); Estimated GFR 91; Globulin 3.6 g/dL (2.4-3.5); Glucose 124 mg/dL (70-105); Potassium 3.9 mmol/L (3.5-5.1); Protein, Total 7.7 g/dL (6.0-8.3); Sodium 137 mmol/L (136-145)
[2023-11-23 10:37] LABS: Lipase 352 U/L (8-78)
[2023-11-23] MEDS ORDERED: Morphine 4 MG/ML VIAL ONE (11:36)
[2023-11-23] MEDS ORDERED: Lorazepam 2 MG/ML VIAL ONE (11:37)
[2023-11-23 11:50] LABS: Band 2 % (5-11); Lymphocytes 10 % (21-51); Monocytes 8 % (0-10); Neutrophil 80 % (42-75); Platelet Adequacy Comment Platelets Normal; Polychromasia SLIGHT = 2-3 cells HPF (0-2)
[2023-11-23] MEDS ORDERED: Iopamidol-370 76% 500 ML MDV (1 ML CHARGE) ONE (12:37)
[2023-11-23 13:41] LABS: Bilirubin Negative (Negative); Blood, Urine Negative (Negative); CAUTI Indications for Culture Acute Hematuria; Glucose, Urine (Dipstick) Normal (Negative); Ketone, Urine Trace mg/dL (Negative); Leukocyte 25 Leu/uL (Negative); Nitrite Negative (Negative); Protein, Urine (Dipstick) 30 mg/dL (Neg-Trace); Urobilinogen Normal mg/dL (Less than 2); Yeast-Budding Rare HPF (None Seen)
[2023-11-23 13:59] LABS: Bacteria/HPF Rare-Few HPF (None Seen); Clarity Hazy (Clear)
[2023-11-23 14:02] LABS: Specific Gravity, Urine Greater than 1.060 (1.002-1.036)
[2023-11-23 14:03] LABS: Urine Culture Reflex Yes Yes
[2023-11-23] MEDS ORDERED: Lorazepam 1 MG TAB PO PRN (15:02)
[2023-11-23] MEDS ORDERED: Ondansetron PF 4 MG/2 ML Vial IVP PRN (15:02)
[2023-11-23] MEDS ORDERED: Ondansetron ODT 4 MG TAB PO PRN (15:02)
[2023-11-23] MEDS ORDERED: Ketorolac Tromethamine 30 MG (1 mL) VIAL IVP PRN (15:02)
[2023-11-23] MEDS ORDERED: Electrolyte Replacement Protocol 1 EACH FS SCH (15:02)
[2023-11-23] MEDS ORDERED: Lorazepam 2 MG/ML VIAL IM PRN (15:02)
[2023-11-23] MEDS ORDERED: Electrolyte Replacement Protocol FS PRN (15:15)
[2023-11-23] MEDS ORDERED: Lorazepam 1 MG TAB ONE (16:51)
[2023-11-23] MEDS ORDERED: Thiamine HCl 200 MG/2 ML VIAL ONE (16:51)
[2023-11-23] MEDS ORDERED: cefTRIAXone (ROCEPHIN) 1 GM VIAL ONE (16:52)
[2023-11-23] MEDS ORDERED: Morphine 2 MG/ML VIAL ONE (17:04)
[2023-11-23] MEDS: Morphine 4 MG/ML VIAL SLOW IVP PRN (17:11)
[2023-11-23] MEDS: Thiamine HCl 200 MG/2 ML VIAL SLOW IVP SCH (17:15)
[2023-11-23] MEDS: cefTRIAXone\\ROCEPHIN 1 GM in Sodium Chloride 0.9% 100 ML IVPB SCH (17:15)
[2023-11-23] MEDS: Sodium Chloride 0.9% 1,000 ML IV SCH (17:15)
[2023-11-23] MEDS: Lorazepam 1 MG TAB PO SCH (17:16)
[2023-11-24] MEDS: Acetaminophen 500 MG TAB PO PRN (00:10)
[2023-11-24 00:19] VITALS: BMI 21.7
[2023-11-24 05:54] LABS: #Basophils Less than 0.03 10x3/uL (0.0-0.2); %Basophils 0.2 % (0.0-1.0); %Eosinophils 0.9 % (0.0-10.0); %Lymphocytes 33.2 % (21.0-51.0); %Monocytes 11.1 % (0.0-10.0); %Neutrophils 54.4 % (42.0-75.0); Hematocrit 34.8 % (36.0-47.0); Hemoglobin 11.8 g/dL (12.0-16.0); Mean Corpuscular HGB CONC 33.9 g/dL (32.0-36.0); Mean Corpuscular Hemoglobin 32.4 pg (27.0-31.0); Mean Corpuscular Volume 95.6 fL (78.0-98.0); Mean Platelet Volume 9.6 fL (7.4-10.4); Platelet Count 218 10x3/uL (130-400); Red Blood Cell (RBC) Count 3.64 mill/uL (4.20-5.40)
[2023-11-24 06:29] LABS: ALT (SGPT) 16 U/L (8-55); AST (SGOT) 17 U/L (5-34); Albumin 3.1 g/dL (3.5-5.0); Alkaline Phosphatase 53 U/L (40-110); Anion Gap 10 mmol/L (10-20); BUN (Urea Nitrogen) 4 mg/dL (7.0-18.7); Bilirubin, Total 0.5 mg/dL (0.2-1.2); Calc. Creatinine Clearance 90 mL/min (70-130); Carbon Dioxide 20 mmol/L (22-29); Chloride 108 mmol/L (98-107); Cholesterol 112 mg/dl (< 200 Desired); Estimated GFR 107; Globulin 2.8 g/dL (2.4-3.5); Glucose 92 mg/dL (70-105); HDL Cholesterol 57 mg/dL (>60 Neg Risk); LDL Cholesterol, Calculated 37 mg/dL; Lipase 217 U/L (8-78); Magnesium 1.5 mg/dL (1.6-2.6); Phosphorus 2.8 mg/dL (2.3-4.7); Potassium 3.5 mmol/L (3.5-5.1); Protein, Total 5.9 g/dL (6.0-8.3); Sodium 134 mmol/L (136-145); Triglycerides 89 mg/dL (Less than 150)
[2023-11-24] MEDS: Potassium Phosphate 30 MMOL in Sodium Chloride 0.9% 250 ML 250 ML IVPB SCH (08:27)
[2023-11-24] MEDS: Magnesium 2 GM/50 ML(in water) 2 GM in Premix 1 BAG IVPB SCH (08:27)
[2023-11-24] MEDS: Multivit, Therapeutic 1 TAB PO SCH (08:28)
[2023-11-24] MEDS: Folic Acid 1 MG TAB PO SCH (08:28)
[2023-11-24 08:30] LABS: Amphetamine Not Detected (NotDetected); Barbiturates Screen Not Detected (NotDetected); Benzodiazepine Screen Detected (NotDetected); Cocaine Metabolite Screen Not Detected (NotDetected); Methadone Not Detected (NotDetected); Methamphetamine Not Detected (NotDetected); Opiate Screen Detected (NotDetected); Oxycodone Screen Not Detected (NotDetected); Phencyclidine (PCP) Not Detected (NotDetected); THC/Cannabinoid Screen Not Detected (NotDetected); Tricyclic Screen Not Detected (NotDetected)
[2023-11-24] MEDS ORDERED: Lorazepam 1 MG TAB PO PRN (13:45)
[2023-11-24] MEDS ORDERED: Ketorolac Tromethamine 30 MG (1 mL) VIAL IVP PRN (13:46)
[2023-11-24 16:48] LABS: Chlam.trachomatis by PCR,Urine Not Detected (NotDetected); GC N.gonorrhoeae PCR,UrineVOID Not Detected (NotDetected)
[2023-11-25 08:57] LABS: Anion Gap 12 mmol/L (10-20); BUN (Urea Nitrogen) Less than 4 mg/dL (7.0-18.7); Calc. Creatinine Clearance 93 mL/min (70-130); Calcium 8.5 mg/dL (7.8-10.44); Carbon Dioxide 20 mmol/L (22-29); Chloride 103 mmol/L (98-107); Estimated GFR 111; Glucose 80 mg/dL (70-105); Magnesium 1.6 mg/dL (1.6-2.6); Sodium 132 mmol/L (136-145)
[2023-11-25] MEDS: Potassium Chloride 20 MEQ TAB PO SCH (10:47)
[2023-11-25] MEDS: Magnesium 2 GM/50 ML(in water) 2 GM in Premix 1 BAG IVPB SCH (10:48)
[2023-11-25] MEDS ORDERED: Lorazepam 1 MG TAB PO PRN (13:45)
[2023-11-25] MEDS: Lorazepam 0.5 MG TAB PO SCH (14:59)
[2023-11-25 15:03] VITALS: BP 149/88; TEMP 98.3
[2023-11-26] MEDS ORDERED: Thiamine 100 MG TAB PO SCH (09:00)
[2023-11-26] MEDS ORDERED: Lorazepam 0.5 MG TAB PO PRN (13:45)
== END 2023-11-25 17:35 | disposition home or self-care (01) | DRG 440 ==
LOC: ERS 09:18 → ERHOLD 12:37 → T4-B 20:36
PROVIDERS: ADMIT Family Medicine; ATTEND Internal Medicine
DX: K85.20 Alcohol induced acute pancreatitis without necrosis or infection (principal); E83.42 Hypomagnesemia; E87.6 Hypokalemia; F10.10 Alcohol abuse, uncomplicated; F12.10 Cannabis abuse, uncomplicated; F41.9 Anxiety disorder, unspecified; F43.10 Post-traumatic stress disorder, unspecified; K86.0 Alcohol-induced chronic pancreatitis; F17.210 Nicotine dependence, cigarettes, uncomplicated; Z71.41 Alcohol abuse counseling and surveillance of alcoholic; Z79.899 Other long term (current) drug therapy
CPT/HCPCS: 36415; 36416; 71045; 74177; 80048; 80053; 80061; 80306; 81001; 83690; 83735; 84100; 84703; 85025; 85610; 85730; 87086; 87491; 87591; 96374; 96375; J0696; J1885; J2060; J2272; J2405; J3411; J3475; J7030; J7050; Q9967

== ENCOUNTER 2023-12-23 13:34 | Emergency (ER) ==
[2023-12-23 14:18] LABS: #Basophils 0.03 10x3/uL (0.0-0.2); #Eosinophils Less than 0.03 10x3/uL (0.0-0.7); %Basophils 0.4 % (0.0-1.0); %Eosinophils 0.1 % (0.0-10.0); %Lymphocytes 22.7 % (21.0-51.0); %Monocytes 8.5 % (0.0-10.0); %Neutrophils 67.9 % (42.0-75.0); Hematocrit 38.7 % (36.0-47.0); Hemoglobin 13.2 g/dL (12.0-16.0); Mean Corpuscular HGB CONC 34.1 g/dL (32.0-36.0); Mean Corpuscular Hemoglobin 33.2 pg (27.0-31.0); Mean Corpuscular Volume 97.2 fL (78.0-98.0); Mean Platelet Volume 9.3 fL (7.4-10.4); Platelet Count 316 10x3/uL (130-400); RBC Distribution Width 14.1 % (11.5-14.5); Red Blood Cell (RBC) Count 3.98 mill/uL (4.20-5.40)
[2023-12-23 14:56] LABS: ALT (SGPT) 14 U/L (8-55); AST (SGOT) 21 U/L (5-34); Albumin 3.7 g/dL (3.5-5.0); Alkaline Phosphatase 80 U/L (40-110); Anion Gap 19 mmol/L (10-20); BUN (Urea Nitrogen) 5 mg/dL (7.0-18.7); Calc. Creatinine Clearance 0 mL/min (70-130); Carbon Dioxide 18 mmol/L (22-29); Chloride 102 mmol/L (98-107); Estimated GFR 102; Globulin 3.6 g/dL (2.4-3.5); Glucose 93 mg/dL (70-105); Lipase 27 U/L (8-78); Potassium 3.6 mmol/L (3.5-5.1); Protein, Total 7.3 g/dL (6.0-8.3); Sodium 135 mmol/L (136-145)
[2023-12-23 14:57] LABS: Troponin I Less than 0.010 ng/mL (< 0.028)
== END 2023-12-23 15:57 | disposition left against medical advice (07) ==
LOC: ERS 13:34
DX: Z53.21 Procedure and treatment not carried out due to patient leaving prior to being seen by health care provider (principal)
CPT/HCPCS: 36415; 80053; 83690; 84484; 85025; 93005

== ENCOUNTER 2024-01-02 13:44 | Emergency (ER) | payer SELFPAY ==
[2024-01-02 15:37] LABS: #Basophils Less than 0.03 10x3/uL (0.0-0.2); #Eosinophils Less than 0.03 10x3/uL (0.0-0.7); %Basophils 0.3 % (0.0-1.0); %Eosinophils 0.1 % (0.0-10.0); %Lymphocytes 16.5 % (21.0-51.0); %Monocytes 11.7 % (0.0-10.0); %Neutrophils 71.1 % (42.0-75.0); Hematocrit 42.8 % (36.0-47.0); Hemoglobin 14.5 g/dL (12.0-16.0); Mean Corpuscular HGB CONC 33.9 g/dL (32.0-36.0); Mean Corpuscular Hemoglobin 32.7 pg (27.0-31.0); Mean Corpuscular Volume 96.6 fL (78.0-98.0); Mean Platelet Volume 10.3 fL (7.4-10.4); Platelet Count 267 10x3/uL (130-400); RBC Distribution Width 14.8 % (11.5-14.5); Red Blood Cell (RBC) Count 4.43 mill/uL (4.20-5.40)
[2024-01-02 15:54] LABS: BHCG - Serum Negative (NEGATIVE); Pregs Control Bar Appear? YES (CONTROL BAR)
[2024-01-02 15:55] LABS: Pregs Control Background? CLEAR/WHITE (CLR/WHITE)
[2024-01-02 15:57] LABS: ALT (SGPT) 10 U/L (8-55); AST (SGOT) 19 U/L (5-34); Albumin 4.2 g/dL (3.5-5.0); Alkaline Phosphatase 75 U/L (40-110); Anion Gap 16 mmol/L (10-20); BUN (Urea Nitrogen) 5 mg/dL (7.0-18.7); Bilirubin, Total 0.8 mg/dL (0.2-1.2); Calc. Creatinine Clearance 0 mL/min (70-130); Calcium 9.6 mg/dL (7.8-10.44); Carbon Dioxide 24 mmol/L (22-29); Chloride 99 mmol/L (98-107); Estimated GFR 104; Glucose 106 mg/dL (70-105); Lipase 30 U/L (8-78); Potassium 2.8 mmol/L (3.5-5.1); Protein, Total 8.2 g/dL (6.0-8.3); Sodium 136 mmol/L (136-145)
[2024-01-02] MEDS ORDERED: Droperidol 5 MG/2 ML VIAL ONE (17:28)
[2024-01-02] MEDS ORDERED: Morphine 4 MG/ML VIAL ONE (17:29)
[2024-01-02 19:15] LABS: Bacteria/HPF None Seen HPF (None Seen); Bilirubin Negative (Negative); Blood, Urine Negative (Negative); CAUTI Indications for Culture Pelvic or flank pain; Clarity Clear (Clear); Glucose, Urine (Dipstick) Normal (Negative); Ketone, Urine Greater than 150 mg/dL (Negative); Leukocyte Negative Leu/uL (Negative); Nitrite Negative (Negative); Protein, Urine (Dipstick) 30 mg/dL (Neg-Trace); Urobilinogen Normal mg/dL (Less than 2)
[2024-01-02 19:29] LABS: Specific Gravity, Urine Greater than 1.060 (1.002-1.036)
[2024-01-02 19:34] LABS: RBC/HPF 0-3 HPF (0-3); Trichomonas/HPF 1+ HPF (None Seen)
[2024-01-02 19:35] LABS: Urine Culture Reflex No No
[2024-01-02] MEDS ORDERED: Potassium Chloride 20 MEQ TAB ONE (19:44)
== END 2024-01-02 20:10 | disposition home or self-care (01) ==
LOC: ERS 13:44
DX: K86.1 Other chronic pancreatitis (principal); A59.9 Trichomoniasis, unspecified; R11.2 Nausea with vomiting, unspecified; F17.210 Nicotine dependence, cigarettes, uncomplicated
CPT/HCPCS: 36415; 74177; 80053; 81001; 83690; 84703; 85025; 96374; 96375; J1790; J2272

== ENCOUNTER 2024-10-16 18:14 | Inpatient (IN) | payer SELFPAY ==
[~2024-10-16 18:14] MED LIST changes: -Iopamidol-370 76% 500 ML 1 ML ONE; +Iopamidol-370 76% 500 ML MDV (1 ML CHARGE) ONE
[2024-10-16 18:54] LABS: Hematocrit 35.8 % (36.0-47.0); Hemoglobin 12.0 g/dL (12.0-16.0); Mean Corpuscular Hemoglobin 31.8 pg (27.0-31.0); Mean Corpuscular Volume 95.0 fL (78.0-98.0); Platelet Count 250 10x3/uL (130-400); Red Blood Cell (RBC) Count 3.77 mill/uL (4.20-5.40); White Blood Cell (WBC) Count 7.26 10x3/uL (4.8-10.8)
[2024-10-16 19:06] LABS: ALT (SGPT) 14 U/L (Less than 34); AST (SGOT) 21 U/L (11-34); Albumin 3.8 g/dL (3.1-4.5); Alkaline Phosphatase 76 U/L (40-110); Anion Gap 15 mmol/L (10-20); BUN (Urea Nitrogen) 4 mg/dL (7.0-18.7); Bilirubin, Total 0.5 mg/dL (0.3-1.2); Calc. Creatinine Clearance 0 mL/min (70-130); Calcium 9.0 mg/dL (7.8-10.44); Carbon Dioxide 19 mmol/L (22-29); Chloride 106 mmol/L (98-107); Globulin 3.4 g/dL (2.4-3.5); Glucose 99 mg/dL (70-105); Lipase 29 U/L (8-78); Potassium 3.8 mmol/L (3.5-5.1); Sodium 136 mmol/L (136-145)
[2024-10-16] MEDS ORDERED: Ondansetron PF 4 MG/2 ML Vial ONE (19:14)
[2024-10-16 19:24] LABS: Anisocytosis SLIGHT = 6-15 cells HPF (0-5); Burr Cells MODERATE= 6-15 cells HPF (0-1); Macrocytosis SLIGHT = 6-15 cells HPF (0-5); Ovalocytes SLIGHT = 2-5 cells HPF (0-1); Platelet Adequacy Comment Platelets Normal; Polychromasia SLIGHT = 2-3 cells HPF (0-2); Schistocytes SLIGHT = 2-5 cells HPF (0-1); Smudge Cells 12.0 %
[2024-10-16 20:24] LABS: Pregnancy Test - Urine (BHCG) Negative (Negative); Pregu Control Background? CLEAR/WHITE (CLR/WHITE); Pregu Control Bar Appear? YES (CONTROL BAR)
[2024-10-16 20:30] LABS: Bacteria/HPF None Seen HPF (None Seen); CAUTI Indications for Culture Pelvic or flank pain; Glucose, Urine (Dipstick) Normal (Negative); Leukocyte 500 Leu/uL (Negative); Protein, Urine (Dipstick) 30 mg/dL (Neg-Trace); RBC/HPF 21-50 HPF (0-3); Specific Gravity, Urine 1.027 (1.002-1.036); WBC/HPF Greater than 50 HPF (0-3)
[2024-10-16 20:31] LABS: Urine Culture Reflex Yes Yes
[2024-10-16] MEDS ORDERED: cefTRIAXone (ROCEPHIN) 1 GM VIAL ONE (21:01)
[2024-10-16] MEDS ORDERED: hydrALAZINE 20 MG/ML VIAL SLOW IVP PRN (22:34)
[2024-10-16] MEDS ORDERED: Lidocaine Viscous Sol 2% 15 ml UD Cup ONE (22:39)
[2024-10-16] MEDS ORDERED: Mag-Al 1200 mg/1200 mg/30 ML UDCUP ONE (22:39)
[2024-10-16] MEDS ORDERED: Famotidine/PF 20 mg/2ml Vial ONE (22:39)
[2024-10-16 23:53] VITALS: BMI 20.4
[2024-10-17] MEDS: Ondansetron PF 4 MG/2 ML Vial IVP PRN (00:49)
[2024-10-17 05:18] LABS: #Basophils Less than 0.03 10x3/uL (0.0-0.2); #Eosinophils 0.05 10x3/uL (0.0-0.7); #Monocytes 0.74 10x3/uL (0.11-0.59); #Neutrophils 2.22 10x3/uL (1.40-6.50); %Basophils 0.3 % (0.0-1.0); %Eosinophils 0.9 % (0.0-10.0); %Lymphocytes 47.3 % (21.0-51.0); %Monocytes 12.8 % (0.0-10.0); %Neutrophils 38.5 % (42.0-75.0); Hematocrit 33.2 % (36.0-47.0); Hemoglobin 11.0 g/dL (12.0-16.0); Mean Corpuscular Hemoglobin 31.5 pg (27.0-31.0); Mean Corpuscular Volume 95.1 fL (78.0-98.0); Platelet Count 218 10x3/uL (130-400); Red Blood Cell (RBC) Count 3.49 mill/uL (4.20-5.40); White Blood Cell (WBC) Count 5.77 10x3/uL (4.8-10.8)
[2024-10-17 05:45] LABS: Anion Gap 14 mmol/L (10-20); BUN (Urea Nitrogen) 5 mg/dL (7.0-18.7); Calc. Creatinine Clearance 84 mL/min (70-130); Calcium 8.5 mg/dL (7.8-10.44); Carbon Dioxide 20 mmol/L (22-29); Chloride 105 mmol/L (98-107); Glucose 104 mg/dL (70-105); Potassium 3.5 mmol/L (3.5-5.1); Sodium 135 mmol/L (136-145)
[2024-10-17] MEDS ORDERED: MD-Gastroview 120 ML BOT ONE (06:56)
[2024-10-17] MEDS: Famotidine/PF 20 mg/2ml Vial SLOW IVP SCH (09:00)
[2024-10-17] MEDS ORDERED: Acetaminophen 325 MG TAB PO PRN (10:24)
[2024-10-17 16:35] VITALS: TEMP 98.9
[2024-10-17 18:24] VITALS: BP 135/82
[2024-10-17] MEDS ORDERED: cefTRIAXone\\ROCEPHIN 1 GM in Sodium Chloride 0.9% 100 ML IVPB SCH (21:00)
== END 2024-10-17 20:25 | disposition home or self-care (01) | DRG 389 ==
LOC: ERS 18:14 → T4-B 22:34
PROVIDERS: ADMIT Surgery; ATTEND Surgery
DX: K56.600 Partial intestinal obstruction, unspecified as to cause (principal); K86.1 Other chronic pancreatitis; N39.0 Urinary tract infection, site not specified; R45.851 Suicidal ideations; Z98.891 History of uterine scar from previous surgery; F10.10 Alcohol abuse, uncomplicated; F41.9 Anxiety disorder, unspecified; Z79.899 Other long term (current) drug therapy; Z53.29 Procedure and treatment not carried out because of patient's decision for other reasons; F17.210 Nicotine dependence, cigarettes, uncomplicated; I10 Essential (primary) hypertension
CPT/HCPCS: 36415; 71045; 74018; 74177; 74250; 80048; 80053; 81001; 81025; 83690; 84484; 85025; 87086; 93005; 96365; 96375; J0696; J1308; J2270; J2405; J7030; Q9963

== ENCOUNTER 2024-12-05 14:01 | Emergency (ER) | payer SELFPAY ==
[2024-12-05] MEDS ORDERED: Acetaminophen 325 MG TAB ONE (14:27)
[2024-12-05] MEDS ORDERED: Methocarbamol 500 MG TAB ONE (14:28)
[2024-12-05] MEDS ORDERED: Ibuprofen 200 MG TAB ONE (14:28)
== END 2024-12-05 15:30 | disposition home or self-care (01) ==
LOC: ERS 14:01
DX: M25.511 Pain in right shoulder (principal); F17.210 Nicotine dependence, cigarettes, uncomplicated
CPT/HCPCS: 99283